=== PATIENT | female | born 1930 | race Caucasian/White ===

== ENCOUNTER → 2016-06-13 | Outpatient (CLI) | payer MEDICARE, OTHER ==
[~2016-06-13] MED LIST: ASPI81TA50 PO; CALC-47 PO; CRESTOR10 MG PO; GABA-585 PO; HYDR-2672 PO; IBUP200C PO; LISI10TA2 PO; MULT-208 PO; OMEG1CAP16 PO; OMEP20TA PO; TRAM50TA PO
[2016-06-13 14:01] LABS: BILIRUBIN,URINE NEGATIVE (NEG); GLUCOSE,URINE NEGATIVE (NEG); NITRITE,URINE NEGATIVE (NEG); PH,URINE 5.5; PROTEIN,URINE NEGATIVE (NEG-TRACE); UROBILINOGEN,URINE 0.2 mg/dL (0.2 mg/dL)
[2016-06-13 14:11] LABS: BACTERIA,URINE 0 /HPF (0-FEW); RBC,URINE 0 /HPF (0-2); SQUAMOUS EPITHELIAL CELL,UR OCC /LPF
[2016-06-13 14:24] LABS: BASO % 0 % (0-3); EOS % 1 % (0-3); HEMATOCRIT 44.1 % (36.0-47.0); HEMOGLOBIN 14.4 g/dL (12.0-15.5); LYMPH # 1.4 x10^3/uL (1.0-4.8); LYMPH % 22 % (24-48); MEAN CORPUSCULAR HEMOGLOBIN 30 pg (25-35); MEAN CORPUSCULAR HGB CONC 33 g/dL (31-37); MEAN CORPUSCULAR VOLUME 93 fL (79-100); MONO % 7 % (0-9); NEUT % 70 % (31-73); PLATELET COUNT 228 x10^3/uL (140-400); RED BLOOD COUNT 4.75 x10^6/uL (3.50-5.40); RED CELL DISTRIBUTION WIDTH 14.6 % (11.5-14.5); WHITE BLOOD COUNT 6.2 x10^3/uL (4.0-11.0)
[2016-06-13 14:34] LABS: PROTHROMBIN TIME PATIENT 12.9 SEC (11.7-14.0)
--- NOTE | 2016-06-13 14:39 | EKG ---
[facility] [address] [place] [address] Test Date: 2016-06-13 Test Time: 14:45:34 Pat Name: DAVID MCKOY Department: Room: Gender: F Certified Surgical Technician: : [id number] Requested By: MARCELINO JAMA Order Number: [id number] Reading MD: Yadira Etienne Measurements Intervals [place] Rate: 70 P: 90 IA: 178 QRS: -18 QRSD: 84 T: 14 QT: 388 QTc: 422 Interpretive Statements SINUS RHYTHM ATRIAL PREMATURE COMPLEX(ES) LEFTWARD AXIS NO SPECIFIC ECG ABNORMALITIES RI6.01 No previous ECG available for comparison Electronically Signed On 06-16-2016 21:31:58 DESK PEN SET ASSEMBLER by Yadira Etienne
[2016-06-13 15:05] LABS: ALBUMIN 3.8 g/dL (3.4-5.0); CALCIUM 9.7 mg/dL (8.5-10.1); CREATININE 0.8 mg/dL (0.6-1.0); GFR 68.2; POTASSIUM 4.4 mmol/L (3.5-5.1); TOTAL BILIRUBIN 0.5 mg/dL (0.2-1.0); TOTAL PROTEIN 7.7 g/dL (6.4-8.2)
== END | disposition home or self-care (01) ==
LOC: SURGPAT 13:10
PROVIDERS: ATTEND Neurological Surgery
DX: Z01.812 Encounter for preprocedural laboratory examination (principal)
CPT/HCPCS: 36415; 80053; 81001; 85027; 85610; 85730; 87086; 87641; 93005

== ENCOUNTER 2016-06-20 07:58 | Inpatient (IN) | payer MEDICARE ==
--- NOTE | 2016-06-17 16:13 | HP ---
ADMIT DATE: 06/20/2016 DATE OF SURGERY: 06/20/2016 HISTORY OF PRESENT ILLNESS: The patient is a pleasant 86-year-old who is having difficulty with incontinence. She is also having increasing unsteadiness of the lower extremities with walking and notices numbness in her right leg. In 04/2011, she underwent a laminectomy for stenosis and did well from that surgery. She says her pain in her right leg can be rated at about a 4-5/10. PAST MEDICAL HISTORY: Arthritis, right hip artificial joint, hypertension, and kidney stones. PAST SURGICAL HISTORY: Left knee replacement in 1999, cholecystectomy in 2000, right knee surgery in 2009, back surgery in 2011, and right hip surgery in 2013. FAMILY HISTORY: Cancer. SOCIAL HISTORY: Retired. . Does not exercise. Denies substance abuse. Former smoker, quit greater than 10 years ago. Drinks alcohol one to two times per year. Drinks coffee, tea and soda. ALLERGIES: No known drug allergies. CURRENT MEDICATIONS: Lisinopril, rosuvastatin, calcium, tramadol, omeprazole, gabapentin, Oscal 500/200, D3, fish oil, multivitamin, and aspirin. REVIEW OF SYSTEMS: A 12-point review of systems was obtained and is noncontributory except for that mentioned above. NEUROSURGERY EXAMINATION: GENERAL APPEARANCE: Alert, pleasant, in no acute distress. HEENT: Normocephalic and atraumatic. SKIN: Warm and dry. MUSCULOSKELETAL: Lumbar paraspinal muscle bulk is normal, restricted range of motion of the lumbar spine, [id number] tenderness of lower lumbar spine with palpation, normal range of motion of the lower extremities bilaterally. EXTREMITIES: No clubbing, cyanosis, or edema. NEUROLOGIC: Alert and oriented x 3, normal recent and remote memory, strength 5/5 in bilateral lower extremities, there is increased tone in both of her lower extremities, sensory was intact to light touch in bilateral lower extremities except for decrease in light touch involving her right lower extremity compared to her left, reflexes were trace and symmetric in the lower extremities bilaterally, and abnormal gait favoring her right leg. IMAGING: I reviewed a thoracic MRI scan. On that study, there is an enhancing mass, which appears intradural and extramedullary T8-T9. This occupies the right side of the canal and markedly compressed the cord to the left. ASSESSMENT/ PLAN: She has enhancing mass, which is now suggestive of meningioma at T8-T9. My recommendation is she undergo surgery to remove the mass. I explained to her that it would be possible she could become paralyzed from this removal and carefully outlined the risks of the surgery. She and her daughters understand very well. She understands the expected postoperative course. She would like to proceed. We will make the arrangements. MARCELINO JAMA MD DR: JIMENEZ/ganga JOB#: [id number] / [id number] DEANNA
[~2016-06-20] VITALS: Ht 157.5 cm; Wt 74.4 kg
[~2016-06-20 07:58] MED LIST changes: +BUPIVAC MPF-EPI 0.5%-1:200000 30 ML VIAL. ONE; +CEFAZOLIN 2GM PREMIX 50 ML IV PRN; +FENTANYL PF 100 MCG/2 ML VIAL. IV PRN; +GELATIN SPONGE SIZE 100. ONE; +IV RINGERS,LACTATED 1000ML 1,000 ML IV SCH; +KETOROLAC 60 MG/2 ML SYRINGE FOR OR. ONE; +LIDOCAINE 1% 1 ML SYRINGE. ID PRN; +MORPHINE SULFATE 2 MG/ML DISP.SYRIN. IV PRN; +ONDANSETRON PF 4 MG/2 ML VIAL. IV PRN; +PROCHLORPERAZINE 10 MG/2 ML VIAL. IV PRN; +THROMBIN 20,000 UNIT SPRAY.SYRN KIT TP ONE
[2016-06-20] MEDS ORDERED: BACITRACIN 50,000 UNIT in IV NORMAL SALINE 1000ML BAG 1,000 ML IRR ONE (08:00)
[2016-06-20] MEDS ORDERED: PROPOFOL 20 ML IV ONE (09:28)
[2016-06-20] MEDS ORDERED: LIDOCAINE 2% 100 MG/5 ML DISP.SYRIN. ONE (09:28)
[2016-06-20] MEDS ORDERED: 0.9 % SODIUM CHLORIDE 50 ML VIAL. IJ ONE (09:28)
[2016-06-20] MEDS ORDERED: ROCURONIUM 50 MG/5 ML VIAL. ONE (09:28)
[2016-06-20] MEDS ORDERED: PROPOFOL 50 ML IV ONE ×2 (09:28→15:21)
[2016-06-20] MEDS ORDERED: DEXAMETHASONE SOD PHOS 20 MG/5 ML VIAL. ONE (09:28)
[2016-06-20] MEDS ORDERED: REMIFENTANIL 2 MG VIAL. IV ONE (09:28)
[2016-06-20] MEDS ORDERED: ONDANSETRON PF 4 MG/2 ML VIAL. ONE (09:28)
--- NOTE | 2016-06-20 10:13 | RAD ---
CT of the thoracic spine without contrast, 06/20/2016: History: Intradural spinal mass, brain lab study Noncontrast scans were obtained with multiplanar reconstructions produced. The data was transferred to the operating room to aid in the patient's stereotactically guided surgery. The following findings are delineated: 1. The patient's known oval-shaped calcified intradural mass is again identified centered at the T8-9 level just to the right of midline. It measures approximately 2.2 cm in craniocaudad extent. 2. There are moderate marginal spurs throughout the thoracic spine. There are moderate degenerative changes involving scattered facet joints bilaterally. No fracture or destructive bony lesion is seen. No spinal stenosis related to the degenerative change is evident. 3. Incidental note is made of a moderate-sized cyst arising from the lateral aspect of the right kidney. There is also a 9 mm slightly dense nodule arising from the upper pole of the right kidney, suggest a complicated cyst versus a solid mass. PQRS Compliance Statement: One or more of the following individualized dose reduction techniques were utilized for this examination: 1. Automated exposure control 2. Adjustment of the mA and/or kV according to patient size 3. Use of iterative reconstruction technique
[2016-06-20] MEDS ORDERED: EPHEDRINE PF IN SALINE 50 MG/5 ML DISP.SYRIN. IV ONE ×2 (13:25→15:42)
[2016-06-20] MEDS ORDERED: PHENYLEPHRINE in 0.9% NACL PF 1 MG/10 ML DISP.SYRIN. IV ONE ×2 (13:56→16:13)
[2016-06-20] MEDS ORDERED: GLYCOPYRROLATE 1 MG/5 ML VIAL. ONE (14:06)
[2016-06-20] MEDS: FENTANYL PF 100 MCG/2 ML VIAL. IV PRN ×2 (18:03→18:14)
[2016-06-20] MEDS: HYDROMORPHONE 2 MG/ML VIAL. IV PRN ×3 (18:24→18:53)
[2016-06-20 19:15] VITALS: BP 152/99
[2016-06-20 20:00] VITALS: BP 118/81
[2016-06-20] MEDS ORDERED: MAG HYDROX/ALUMINUM HYD/SIMETH 30 ML ORAL.SUSP PO PRN (20:30)
[2016-06-20] MEDS ORDERED: ONDANSETRON PF 4 MG/2 ML VIAL. IV PRN (20:30)
[2016-06-20] MEDS ORDERED: DIPHENHYDRAMINE HCL 25 MG CAPSULE PO PRN (20:30)
[2016-06-20] MEDS ORDERED: MAGNESIUM HYDROXIDE 2,400 MG/30 ML ORAL.SUSP. PO PRN (20:30)
[2016-06-20] MEDS ORDERED: 0.9 % SODIUM CHLORIDE 10 ML DISP.SYRIN. IV PRN (20:30)
[2016-06-20] MEDS ORDERED: DIPHENHYDRAMINE 50 MG/ML VIAL IV PRN (20:30)
[2016-06-20] MEDS ORDERED: CALCIUM CARBONATE 500 MG TAB.CHEW PO PRN (20:30)
[2016-06-20] MEDS: POTASSIUM CL 20MEQ D5-0.45NACL 1,000 ML IV SCH (21:00)
[2016-06-20] MEDS: ATORVASTATIN CALCIUM 20 MG TABLET PO SCH (21:21)
[2016-06-20] MEDS: DOCUSATE SODIUM 100 MG CAPSULE PO SCH (21:21)
[2016-06-20] MEDS: GABAPENTIN 400 MG CAPSULE. PO SCH (21:21)
--- NOTE | 2016-06-20 22:42 | OP ---
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 OPERATION PERFORMED: T8-T9 laminectomy with intradural excision of intradural extramedullary mass and decompression of the spinal cord. The operation was done with EMG monitoring, fluoroscopy, BrainLAB guidance, SSEP monitoring, motor evoked potentials. WOOD VENEER TAPER: Geoffrey Beckwith MD., assisted with the surgery. He assisted with the exposure, the laminectomy, the intradural microscopic removal of the mass as well as the closure. OPERATIVE INDICATIONS: The patient is a very pleasant 86-year-old woman who developed intractable problems with bowel and bladder function as well as instability with walking. On imaging study, she was found to have a T8-T9 thoracic mass which was predominantly on the right side with severe compression of the spinal cord and severe stenosis associated with this. I recommended thoracic laminectomy and excision of the mass. I discussed with the patient and her daughter the risks, the technique and the expected postoperative course and they wished me to go ahead. DESCRIPTION OF PROCEDURE: Following general endotracheal anesthesia, the patient was positioned prone on the Johnny table with lumbar regions prepped and draped in standard fashion. MICHELLE hose and AV impulse boots were applied for DVT prophylaxis. A microscope was draped. Fluoroscopy was draped and brought into field. Monitoring was established. Using fluoroscopic guidance, the BrainLAB star was attached to the spinous processes of T10. I then initialized the BrainLAB system and then carried the incision superiorly to the superior border of T8, then reflected the paraspinal muscles and placed self-retaining retractors. I brought in the microscope and the remainder of surgery was done with microscope using microscopic technique. I used [place] to remove the spinous processes of T8 and T9 and then a high speed air drill through the microscope was used using microscopic technique to drill the bone and carried this down to the ligamentum flavum. The dura was exposed from the inferior aspect of T8 to the superior aspect of T9 completely on the right side and about 50% on the left side. I laid a small piece of Gelfoam around the gutters and then 1 x 3 cottonoids were used to out of the wound, which was then cordoned off with towels. I then incised and opened the dura with #11 blade and then used an angled dural guide with 11 blade to open the dura superiorly. I could visualize the tumor. I went from inferior to the tumor to superior to the tumor and placed 4-0 Nurolon stitches which were tagged back with Parisi clamps. Through the microscope then I began to use the arachnoid knife and free up small arachnoid bands which were tethering the tumor which was associated with marked compression of the spinal cord. Beginning superiorly, I grasped the superior pole of the tumor after I worked sort of and helped to detach it. I began to gently peel the tumor from superiorly to inferiorly and as I worked, I was able to obtain an excellent removal at this point and then I went inferiorly and began to peel superiorly. Because there was a large amount of bone work, the tumor base was lifted off of the spinal cord and there was no lateral compression as I was able to carry it away. There was a lateral attachment and I coagulated the vessels, which were attaching the dura laterally and cut this. There was a single nerve that went into the tumor, which was a small branch of a thoracic nerve root which I also divided to allow me to remove the tumor, which was then removed in total. 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 I then explored carefully. There was no significant hemorrhage in the spinal cord. I assured myself of perfect hemostasis within the tumor bed and then we filled the subarachnoid space with warm saline and then closed the dura with a running 4-0 Nurolon. I then placed blue glue and a small piece of a Duragen after I did Valsalva and assured myself that the closure was water tight. I then removed the retractor, obtained hemostasis in the muscle and closed the muscle with absorbable sutures. The fascia was closed in a separate layer. Subcutaneous tissue was closed with 2-0 absorbable sutures and skin was closed with skin jassi. The operation went very well and the monitoring started out quite good and did not deteriorated during the operation. Again, I was quite pleased with the surgery. MARCELINO JAMA MD DR: JIMENEZ/ganga JOB#: [id number] / [id number]
[2016-06-20 23:19] VITALS: BP 135/79
[2016-06-20 23:30] VITALS: BP_SYST 148; BP_SYST 152; BP_DIAS 86; BP_DIAS 90
[2016-06-20 23:54] VITALS: BP 148/85
[2016-06-21 03:30] VITALS: BP 114/61
[2016-06-21 07:24] VITALS: BP 140/76
[2016-06-21] MEDS: PANTOPRAZOLE 40 MG TABLET. PO SCH (07:33)
[2016-06-21] MEDS: GABAPENTIN 400 MG CAPSULE. PO SCH ×2 (08:24→21:21)
[2016-06-21] MEDS: DOCUSATE SODIUM 100 MG CAPSULE PO SCH ×2 (08:24→21:22)
[2016-06-21] MEDS: ASPIRIN ENTERIC COATED 81 MG TABLET.DR. PO SCH (08:24)
[2016-06-21] MEDS: LISINOPRIL 10 MG TABLET PO SCH (08:24)
[2016-06-21] MEDS: MULTIVITAMIN with MINERAL TABLET. PO SCH (08:24)
[2016-06-21] MEDS: CALCIUM CARB/VIT D3 500/200 TABLET PO SCH (08:24)
[2016-06-21] MEDS: TRAMADOL 50 MG TABLET. PO PRN ×2 (08:25→16:17)
--- NOTE | 2016-06-21 10:04 | PDOC ---
PROGRESS NOTES Subjective Subjective POD #1 resting in bed has been up to bathroom incision sore with activity, controlled with medication remains unsteady Objective Objective Vital Signs Date Time Temp Pulse Resp B/P Pulse Ox O2 Delivery O2 Flow Rate FiO2 06/21/16 08:25 Room Air 06/21/16 08:24 89 126/71 06/21/16 07:24 97.8 20 96 97.8 06/20/16 18:53 2.0 Intake and Output 06/21/16 07:00 Intake Total 1550 ml Output Total 650 ml Balance 900 ml IV Total 1550 ml Output Urine Total 550 ml Stool Total 0 ml Estimated Blood Loss 100 ml Physical Exam General: Alert, Oriented X3, Cooperative Neuro: Normal speech, Other (STEINER) Skin: Other (dressing C,DI, flat) Assessment Assessment Problems Medical Problems: (1) Spinal cord tumor Status: Acute Plan Plan of Care consult Dr. Schultz. will likely need SNF Comment Review of Relevant I have reviewed the following items ajsmeet (where applicable) has been applied. Medications Current Medications Ondansetron HCl (Zofran) 4 mg PRN Q6HRS PRN IV Nausea; Start 06/20/16 at 07:00 ; Stop 06/21/16 at 06:59; Status DC Fentanyl Citrate (Fentanyl 2ml Vial) 25 mcg PRN Q5MIN PRN IV MILD PAIN; Start 06/20/16 at 07:00; Stop 06/21/16 at 06:59; Status DC Fentanyl Citrate (Fentanyl 2ml Vial) 50 mcg PRN Q5MIN PRN IV MODERATE PAIN Last administered on 06/20/16 18:14; Start 06/20/16 at 07:00; Stop 06/21/16 at 06:59; Status DC Morphine Sulfate 1 mg 1 mg PRN Q10MIN PRN IV SEVERE PAIN; Start 06/20/16 at 07: 00; Stop 06/21/16 at 06:59; Status DC Lactated Ringer's (Iv Lactated Ringers) 1,000 ml @ 30 mls/hr Q24H IV Last administered on 06/20/16 08:55; Start 06/20/16 at 07:00; Stop 06/20/16 at 18:59 ; Status DC Lidocaine HCl 2 ml 1X PRN PRN ID IV START; Start 06/20/16 at 07:00; Stop at 06:59; Status DC Hydromorphone HCl (Dilaudid) 0.5 mg PRN Q10MIN PRN IV SEVERE PAIN, Second choice Last administered on 06/20/16 18:53; Start 06/20/16 at 07:00; Stop 06/21 at 06:59; Status DC Prochlorperazine Edisylate 5 mg 5 mg PACU PRN PRN IV NAUSEA; Start 06/20/16 at 07:00; Stop 06/21/16 at 06:59; Status DC Bacitracin 73336 unit/Sodium Chloride 1,000 ml @ 1,000 mls/hr 1X PERIOP ONCE IRR Last administered on 06/20/16 14:11; Start 06/20/16 at 08:00; Stop at 08:59; Status DC Cefazolin Sodium/ Dextrose (Ancef 2gm Premix) 50 ml @ 100 mls/hr 1X PREOP PRN IV PRIOR TO SURGERY Last administered on 06/20/16 13:23; Start 06/19/16 at 08: 00 Bupivacaine HCl/ Epinephrine Bitart (Sensorcain-Mpf Epi 0.5%-1:[id number]) 30 ml STK -MED ONCE .ROUTE Last administered on 06/20/16 14:11; Start 06/20/16 at 07:51 ; Stop 06/20/16 at 07:52; Status DC Gelatin (Gelfoam Size 100) 1 each STK-MED ONCE .ROUTE Last administered on 14:11; Start 06/20/16 at 07:51; Stop 06/20/16 at 07:52; Status DC Ketorolac Tromethamine (Toradol For Or Only) 60 mg STK-MED ONCE .ROUTE Last administered on 06/20/16 14:11; Start 06/20/16 at 07:51; Stop 06/20/16 at 07:52 ; Status DC Thrombin 20,000 unit STK-MED ONCE TP Last administered on 06/20/16 14:11; Start 06/20/16 at 07:51; Stop 06/20/16 at 07:52; Status DC Dexamethasone Sodium Phosphate (Decadron) 20 mg STK-MED ONCE .ROUTE ; Start at 09:28; Stop 06/20/16 at 09:29; Status DC Ondansetron HCl 4 mg 4 mg STK-MED ONCE .ROUTE ; Start 06/20/16 at 09:28; Stop at 09:29; Status DC Propofol 20 ml @ As Directed STK-MED ONCE IV ; Start 06/20/16 at 09:28; Stop at 09:29; Status DC Propofol (Diprivan) 50 ml @ As Directed STK-MED ONCE IV ; Start 06/20/16 at 09: 28; Stop 06/20/16 at 09:29; Status DC Lidocaine HCl 100 mg STK-MED ONCE .ROUTE ; Start 06/20/16 at 09:28; Stop at 09:29; Status DC Sodium Chloride (Sodium Chloride) 50 ml STK-MED ONCE IJ ; Start 06/20/16 at 09: 28; Stop 06/20/16 at 09:29; Status DC Remifentanil HCl (Ultiva) 2 mg STK-MED ONCE IV ; Start 06/20/16 at 09:28; Stop 06/20/16 at 09:29; Status DC Rocuronium [place] (Zemuron) 50 mg STK-MED ONCE .ROUTE ; Start 06/20/16 at 09:28 ; Stop 06/20/16 at 09:29; Status DC Ephedrine Sulfate 50 mg STK-MED ONCE IV ; Start 06/20/16 at 13:25; Stop at 13:26; Status DC Phenylephrine HCl 1 mg STK-MED ONCE IV ; Start 06/20/16 at 13:56; Stop 06/20/16 at 13:57; Status DC Glycopyrrolate 1 mg 1 mg STK-MED ONCE .ROUTE ; Start 06/20/16 at 14:06; Stop at 14:07; Status DC Propofol (Diprivan) 50 ml @ As Directed STK-MED ONCE IV ; Start 06/20/16 at 15: 21; Stop 06/20/16 at 15:22; Status DC Ephedrine Sulfate 50 mg STK-MED ONCE IV ; Start 06/20/16 at 15:42; Stop at 15:43; Status DC Phenylephrine HCl 1 mg STK-MED ONCE IV ; Start 06/20/16 at 16:13; Stop 06/20/16 at 16:14; Status DC Aspirin (Ecotrin) 81 mg DAILY PO Last administered on 06/21/16 08:24; Start at 09:00 Calcium/Vitamin D (Oscal D 500mg/ 200uts) 1 tab DAILY PO Last administered on 08:24; Start 06/21/16 at 09:00 Gabapentin (Neurontin) 400 mg BID PO Last administered on 06/21/16 08:24; Start 06/20/16 at 21:00 Lisinopril (Prinivil) 10 mg DAILY PO Last administered on 06/21/16 08:24; Start 06/21/16 at 09:00 Tramadol HCl (Ultram) 50 mg PRN Q6HRS PRN PO MILD TO MODERATE PAIN Last administered on 06/21/16 08:25; Start 06/20/16 at 17:15 Multivitamins/ Calcium (Thera M Plus) 1 tab DAILY PO Last administered on 08:24; Start 06/21/16 at 09:00 Pantoprazole Sodium (Protonix) 40 mg DAILYAC PO Last administered on 06/21/16 07:33; Start 06/21/16 at 07:30 Atorvastatin Calcium (Lipitor) 20 mg QHS PO Last administered on 06/20/16 21: 21; Start 06/20/16 at 21:00 Acetaminophen (Tylenol) 650 mg PRN Q6HRS PRN PO MILD PAIN / TEMP; Start at 20:30 Al Hydrox/Mg Hydrox/Simethicone (Mylanta Plus Xs) 30 ml PRN Q3HRS PRN PO HEARTBURN / GAS; Start 06/20/16 at 20:30 Calcium Carbonate/ Glycine (Tums) 500 mg PRN Q3HRS PRN PO INDIGESTION; Start at 20:30 Diphenhydramine HCl (Benadryl) 25 mg PRN Q6HRS PRN PO ITCHING; Start 06/20/16 at 20:30 Diphenhydramine HCl (Benadryl) 25 mg PRN Q6HRS PRN IV ITCHING; Start 06/20/16 at 20:30 Sodium Chloride 3 ml 3 ml QSHIFT PRN IV AFTER MEDS AND BLOOD DRAWS; Start 06/20 at 20:30 Potassium Chloride/Dextrose/ Sod Cl (KCl 20 Meq In D5W-1/2 NS) 1,000 ml @ 75 mls/hr [id number] IV ; Start 06/20/16 at 21:00 Docusate Sodium (Colace) 100 mg BID PO Last administered on 06/21/16t 08:24; Start 06/20/16 at 21:00 Magnesium Hydroxide (Milk Of Magnesia) 2,400 mg PRN Q12HR PRN PO CONSTIPATION; Start 06/20/16 at 20:30 Ondansetron HCl (Zofran) 4 mg PRN Q6HRS PRN IV NAUESA, 1ST CHOICE; Start at 20:30 Active Scripts Active Reported Lisinopril 10 Mg Tablet 1 Tab PO DAILY Multi-Day Vitamins (Multivitamin) 1 Each Tablet 1 Tab PO DAILY Aspir-Low (Aspirin) 81 Mg Tablet.dr 1 Tab PO DAILY Fish Oil 1,000 Mg Softgel ([place]-3 Fatty Acids/Fish Oil) 1 Each Capsule 1 Each PO Calcium 500 + Vit D 200 Tablet (Calcium Carbonate/Vitamin D3) 1 Each Tablet 1 Each PO Omeprazole 20 Mg Tablet.dr 1 Tab PO DAILY Gabapentin 100 Mg Capsule 400 Mg PO BID Crestor (Rosuvastatin Calcium) 10 Mg Tablet 5 Mg PO DAILY Tramadol Hcl 50 Mg Tablet 1 Tab PO PRN Q6HRS Vitals/I & O Vital Sign - Last 24 Hours 06/20/16 06/20/16 06/20/16 06/20/16 17:14 17:14 17:29 17:44 Temp 98.0 98.0 Pulse 87 79 82 Resp 20 20 16 B/P 156/69 152/73 154/68 Pulse Ox 100 90 93 O2 Delivery Mask Simple Mask Room Air Room Air O2 Flow Rate 10 10 06/20/16 06/20/16 06/20/16 06/20/16 17:59 18:03 18:14 18:14 Temp 98.0 98.0 98.0 98.0 Pulse 82 81 Resp 18 18 23 18 B/P 142/55 146/68 Pulse Ox 93 93 92 93 O2 Delivery Room Air Room Air Room Air Room Air 06/20/16 06/20/16 06/20/16 06/20/16 18:24 18:29 18:38 18:44 Temp 98.0 98.0 98.0 98.0 Pulse 83 84 Resp 18 20 B/P 151/64 161/82 Pulse Ox 93 95 95 94 O2 Delivery Room Air Nasal Cannula Nasal Cannula Nasal Cannula O2 Flow Rate 2 2.0 2.0 06/20/16 06/20/16 06/20/16 06/20/16 18:53 19:15 20:00 23:19 Temp 97.9 99.0 97.9 99.0 Pulse 91 92 93 Resp 20 B/P 152/99 118/81 135/79 Pulse Ox 95 97 94 O2 Delivery Nasal Cannula Room Air O2 Flow Rate 2.0 06/20/16 06/20/16 06/20/16 06/21/16 23:30 23:30 23:54 03:30 Temp 97.9 98.5 97.9 98.5 Pulse 85 91 87 86 Resp 16 B/P 148/86 152/90 148/85 114/61 Pulse Ox 94 93 O2 Delivery Room Air Room Air 06/21/16 06/21/16 06/21/16 06/21/16 07:24 08:20 08:24 08:25 Temp 97.8 97.8 Pulse 81 89 Resp 20 B/P 140/76 126/71 Pulse Ox 96 O2 Delivery Room Air Room Air Room Air Intake and Output 06/20/16 06/20/16 06/21/16 15:00 23:00 07:00 Intake Total 50 ml 1500 ml Output Total 500 ml 150 ml Balance 50 ml 1000 ml -150 ml MARCELINO JAMA MD Jun 21, 2016 10:04
[2016-06-21] MEDS: POTASSIUM CL 20MEQ D5-0.45NACL 1,000 ML IV SCH (10:20)
[2016-06-21] MEDS ORDERED: BISACODYL 5 MG TABLET.DR. PO PRN (10:45)
[2016-06-21 11:25] VITALS: BP 114/64
[2016-06-21] MEDS: ACETAMINOPHEN 325 MG TABLET. PO PRN ×2 (11:57→21:22)
[2016-06-21] MEDS: SENNOSIDES/DOCUSATE 8.6/50MG TABLET. PO SCH ×2 (11:57→21:21)
--- NOTE | 2016-06-21 16:33 | CONS ---
DATE OF CONSULTATION: 06/21/2016 I saw her at the request of Dr. Lv Proctor on 06/21/2016. She is in room 448. HISTORY OF PRESENT ILLNESS: This is an 86-year-old female with problems with her bladder control, had evaluation was found with T8 level tumor pressing on the spinal canal. She had thoracic decompression laminectomy done on 06/20/2016. She admits continued back pain mainly with movement. The patient admits some constipation. She denies any trouble with her bladder control at present time. She admits some numbness in her right foot. The patient prior to the present hospitalization has been living alone. She had no steps for her to manage and she had a walker at home. PHYSICAL EXAMINATION: The patient on physical examination today revealed an elderly female, she is alert, oriented to time, place, person and circumstance and follows commands appropriately, moves all 4 extremities voluntarily where she had 4+/5 grade muscle strength and deep tendon reflexes are 1 to 2+ and symmetrical. She had slightly decreased touch and pinprick sensation over right foot. She had dressing to her midthoracic spine area. Minimal tenderness to palpation over the mid thoracic paraspinal muscles. Straight leg raising test is negative bilaterally. She is independent with bed mobility and transfers, once up, she can walk using a roller walker. I did not see any loss of balance. The patient is status post bilateral total knee arthroplasties in the past. ASSESSMENT: The patient is status post decompression laminectomy T8-T9 level for treatment of mass lesion pressing on the spinal canal with neurogenic bladder and mild incoordination using her right lower extremity and mobility and self-care limitations. RECOMMENDATIONS: Agree with the plan for physical therapy. To also ask occupational therapy to see her. To ask for a screen for her transfer to [facility] as she is somewhat hesitant about return to her home. She can go and stay with her daughter, but she has several steps for her to manage and also her daughter who is a nurse works to check post-voiding residual to make sure she is emptying her bladder and also to start her on a bowel training program. Dr. Proctro, I appreciate asking me to participate in care of this interesting patient. I will be glad to follow her with you as needed for her rehabilitation. RICK LOMBARDI MD DR: CATHRYN/ganga JOB#: [id number] / [id number]
[2016-06-21 18:03] VITALS: BP 148/87
[2016-06-21] MEDS: ATORVASTATIN CALCIUM 20 MG TABLET PO SCH (21:22)
[2016-06-21 22:30] VITALS: BP 151/85
[2016-06-22 04:05] VITALS: BP 143/87
[2016-06-22 06:25] VITALS: BP 152/87
[2016-06-22] MEDS: PANTOPRAZOLE 40 MG TABLET. PO SCH (06:27)
[2016-06-22] MEDS ORDERED: ONDANSETRON ODT 4 MG TAB.RAPDIS PO PRN (08:00)
[2016-06-22] MEDS: TRAMADOL 50 MG TABLET. PO PRN ×2 (08:47→17:21)
[2016-06-22] MEDS: ASPIRIN ENTERIC COATED 81 MG TABLET.DR. PO SCH (09:00)
[2016-06-22] MEDS: SENNOSIDES/DOCUSATE 8.6/50MG TABLET. PO SCH ×2 (09:00→20:47)
[2016-06-22] MEDS: MULTIVITAMIN with MINERAL TABLET. PO SCH (09:00)
[2016-06-22] MEDS: GABAPENTIN 400 MG CAPSULE. PO SCH ×2 (09:00→20:47)
[2016-06-22] MEDS: DOCUSATE SODIUM 100 MG CAPSULE PO SCH ×2 (09:00→20:47)
[2016-06-22] MEDS: CALCIUM CARB/VIT D3 500/200 TABLET PO SCH (09:00)
[2016-06-22] MEDS: LISINOPRIL 10 MG TABLET PO SCH (09:17)
[2016-06-22] MEDS ORDERED: HYDROCODONE/APAP 7.5/325MG TABLET. PO PRN ×2 (09:30)
--- NOTE | 2016-06-22 09:40 | PDOC ---
PROGRESS NOTES Subjective Subjective resting in bed nauseated, vomited overnight incisional pain and leg pain when up daughter at bedside Objective Objective Vital Signs Date Time Temp Pulse Resp B/P Pulse Ox O2 Delivery O2 Flow Rate FiO2 06/22/16 09:17 83 152/87 06/22/16 08:47 16 Room Air 06/22/16 06:25 99.3 95 99.3 06/20/16 18:53 2.0 Intake and Output 06/22/16 07:00 Intake Total 1000 ml Balance 1000 ml Intake Oral 1000 ml # Voids 10 Physical Exam General: Alert, Oriented X3, Cooperative Neuro: Normal speech, Other (strength 5/5 in BLE) Psych/Mental Status: Mental status NL Skin: Other (Dressing C,D,I, flat) Assessment Assessment Problems Medical Problems: (1) Spinal cord tumor Status: Acute Plan Plan of Care restart IVF Zofran prn encouraged in creased activity as tolerated encouraged to avoid straining Comment Review of Relevant I have reviewed the following items jasmeet (where applicable) has been applied. Medications Current Medications Ondansetron HCl (Zofran) 4 mg PRN Q6HRS PRN IV Nausea; Start 06/20/16 at 07:00 ; Stop 06/21/16 at 06:59; Status DC Fentanyl Citrate (Fentanyl 2ml Vial) 25 mcg PRN Q5MIN PRN IV MILD PAIN; Start 06/20/16 at 07:00; Stop 06/21/16 at 06:59; Status DC Fentanyl Citrate (Fentanyl 2ml Vial) 50 mcg PRN Q5MIN PRN IV MODERATE PAIN Last administered on 06/20/16 18:14; Start 06/20/16 at 07:00; Stop 06/21/16 at 06:59; Status DC Morphine Sulfate 1 mg 1 mg PRN Q10MIN PRN IV SEVERE PAIN; Start 06/20/16 at 07: 00; Stop 06/21/16 at 06:59; Status DC Lactated Ringer's (Iv Lactated Ringers) 1,000 ml @ 30 mls/hr Q24H IV Last administered on 06/20/16 08:55; Start 06/20/16 at 07:00; Stop 06/20/16 at 18:59 ; Status DC Lidocaine HCl 2 ml 1X PRN PRN ID IV START; Start 06/20/16 at 07:00; Stop at 06:59; Status DC Hydromorphone HCl (Dilaudid) 0.5 mg PRN Q10MIN PRN IV SEVERE PAIN, Second choice Last administered on 06/20/16 18:53; Start 06/20/16 at 07:00; Stop 06/21 at 06:59; Status DC Prochlorperazine Edisylate 5 mg 5 mg PACU PRN PRN IV NAUSEA; Start 06/20/16 at 07:00; Stop 06/21/16 at 06:59; Status DC Bacitracin 45027 unit/Sodium Chloride 1,000 ml @ 1,000 mls/hr 1X PERIOP ONCE IRR Last administered on 06/20/16 14:11; Start 06/20/16 at 08:00; Stop at 08:59; Status DC Cefazolin Sodium/ Dextrose (Ancef 2gm Premix) 50 ml @ 100 mls/hr 1X PREOP PRN IV PRIOR TO SURGERY Last administered on 06/20/16 13:23; Start 06/19/16 at 08: 00 Bupivacaine HCl/ Epinephrine Bitart (Sensorcain-Mpf Epi 0.5%-1:061787) 30 ml STK -MED ONCE .ROUTE Last administered on 06/20/16 14:11; Start 06/20/16 at 07:51 ; Stop 06/20/16 at 07:52; Status DC Gelatin (Gelfoam Size 100) 1 each STK-MED ONCE .ROUTE Last administered on 14:11; Start 06/20/16 at 07:51; Stop 06/20/16 at 07:52; Status DC Ketorolac Tromethamine (Toradol For Or Only) 60 mg STK-MED ONCE .ROUTE Last administered on 06/20/16 14:11; Start 06/20/16 at 07:51; Stop 06/20/16 at 07:52 ; Status DC Thrombin 20,000 unit STK-MED ONCE TP Last administered on 06/20/16 14:11; Start 06/20/16 at 07:51; Stop 06/20/16 at 07:52; Status DC Dexamethasone Sodium Phosphate (Decadron) 20 mg STK-MED ONCE .ROUTE ; Start at 09:28; Stop 06/20/16 at 09:29; Status DC Ondansetron HCl 4 mg 4 mg STK-MED ONCE .ROUTE ; Start 06/20/16 at 09:28; Stop at 09:29; Status DC Propofol 20 ml @ As Directed STK-MED ONCE IV ; Start 06/20/16 at 09:28; Stop at 09:29; Status DC Propofol (Diprivan) 50 ml @ As Directed STK-MED ONCE IV ; Start 06/20/16 at 09: 28; Stop 06/20/16 at 09:29; Status DC Lidocaine HCl 100 mg STK-MED ONCE .ROUTE ; Start 06/20/16 at 09:28; Stop at 09:29; Status DC Sodium Chloride (Sodium Chloride) 50 ml STK-MED ONCE IJ ; Start 06/20/16 at 09: 28; Stop 06/20/16 at 09:29; Status DC Remifentanil HCl (Ultiva) 2 mg STK-MED ONCE IV ; Start 06/20/16 at 09:28; Stop 06/20/16 at 09:29; Status DC Rocuronium [place] (Zemuron) 50 mg STK-MED ONCE .ROUTE ; Start 06/20/16 at 09:28 ; Stop 06/20/16 at 09:29; Status DC Ephedrine Sulfate 50 mg STK-MED ONCE IV ; Start 06/20/16 at 13:25; Stop at 13:26; Status DC Phenylephrine HCl 1 mg STK-MED ONCE IV ; Start 06/20/16 at 13:56; Stop 06/20/16 at 13:57; Status DC Glycopyrrolate 1 mg 1 mg STK-MED ONCE .ROUTE ; Start 06/20/16 at 14:06; Stop at 14:07; Status DC Propofol (Diprivan) 50 ml @ As Directed STK-MED ONCE IV ; Start 06/20/16 at 15: 21; Stop 06/20/16 at 15:22; Status DC Ephedrine Sulfate 50 mg STK-MED ONCE IV ; Start 06/20/16 at 15:42; Stop at 15:43; Status DC Phenylephrine HCl 1 mg STK-MED ONCE IV ; Start 06/20/16 at 16:13; Stop 06/20/16 at 16:14; Status DC Aspirin (Ecotrin) 81 mg DAILY PO Last administered on 06/21/16 08:24; Start at 09:00 Calcium/Vitamin D (Oscal D 500mg/ 200uts) 1 tab DAILY PO Last administered on 08:24; Start 06/21/16 at 09:00 Gabapentin (Neurontin) 400 mg BID PO Last administered on 06/21/16 21:21; Start 06/20/16 at 21:00 Lisinopril (Prinivil) 10 mg DAILY PO Last administered on 06/22/16 09:17; Start 06/21/16 at 09:00 Tramadol HCl (Ultram) 50 mg PRN Q6HRS PRN PO MILD TO MODERATE PAIN Last administered on 06/22/16 08:47; Start 06/20/16 at 17:15 Multivitamins/ Calcium (Thera M Plus) 1 tab DAILY PO Last administered on 08:24; Start 06/21/16 at 09:00 Pantoprazole Sodium (Protonix) 40 mg DAILYAC PO Last administered on 06/22/16 06:27; Start 06/21/16 at 07:30 Atorvastatin Calcium (Lipitor) 20 mg QHS PO Last administered on 06/21/16 21: 22; Start 06/20/16 at 21:00 Acetaminophen (Tylenol) 650 mg PRN Q6HRS PRN PO MILD PAIN / TEMP Last administered on 06/21/16 21:22; Start 06/20/16 at 20:30 Al Hydrox/Mg Hydrox/Simethicone (Mylanta Plus Xs) 30 ml PRN Q3HRS PRN PO HEARTBURN / GAS; Start 06/20/16 at 20:30 Calcium Carbonate/ Glycine (Tums) 500 mg PRN Q3HRS PRN PO INDIGESTION; Start at 20:30 Diphenhydramine HCl (Benadryl) 25 mg PRN Q6HRS PRN PO ITCHING; Start 06/20/16 at 20:30 Diphenhydramine HCl (Benadryl) 25 mg PRN Q6HRS PRN IV ITCHING; Start 06/20/16 at 20:30 Sodium Chloride 3 ml 3 ml QSHIFT PRN IV AFTER MEDS AND BLOOD DRAWS; Start 06/20 at 20:30 Potassium Chloride/Dextrose/ Sod Cl (KCl 20 Meq In D5W-1/2 NS) 1,000 ml @ 75 mls/hr [id number] IV ; Start 06/20/16 at 21:00; Stop 06/21/16 at 19:12; Status DC Docusate Sodium (Colace) 100 mg BID PO Last administered on 06/21/16 21:22; Start 06/20/16 at 21:00 Magnesium Hydroxide (Milk Of Magnesia) 2,400 mg PRN Q12HR PRN PO CONSTIPATION; Start 06/20/16 at 20:30 Ondansetron HCl (Zofran) 4 mg PRN Q6HRS PRN IV NAUESA, 1ST CHOICE; Start at 20:30 Senna/Docusate Sodium (Senna Plus) 1 tab BID PO Last administered on 06/21/16 21:21; Start 06/21/16 at 11:00 Bisacodyl (Dulcolax Tab) 10 mg PRN DAILY PRN PO CONSTIPATION; Start 06/21/16 at 10:45 Ondansetron HCl (Zofran Odt) 4 mg PRN Q8HRS PRN PO NAUSEA/VOMITING Last administered on 06/22/16 08:46; Start 06/22/16 at 08:00 Acetaminophen/ Hydrocodone Bitart (Lortab 7.5/325) 1 tab PRN Q6HRS PRN PO PAIN ; Start 06/22/16 at 09:30 Acetaminophen/ Hydrocodone Bitart (Lortab 7.5/325) 2 tab PRN Q6HRS PRN PO PAIN ; Start 06/22/16 at 09:30 Active Scripts Active Reported Lisinopril 10 Mg Tablet 1 Tab PO DAILY Multi-Day Vitamins (Multivitamin) 1 Each Tablet 1 Tab PO DAILY Aspir-Low (Aspirin) 81 Mg Tablet. 1 Tab PO DAILY Fish Oil 1,000 Mg Softgel ([place]-3 Fatty Acids/Fish Oil) 1 Each Capsule 1 Each PO Calcium 500 + Vit D 200 Tablet (Calcium Carbonate/Vitamin D3) 1 Each Tablet 1 Each PO Omeprazole 20 Mg Tablet.dr 1 Tab PO DAILY Gabapentin 100 Mg Capsule 400 Mg PO BID Crestor (Rosuvastatin Calcium) 10 Mg Tablet 5 Mg PO DAILY Tramadol Hcl 50 Mg Tablet 1 Tab PO PRN Q6HRS Vitals/I & O Vital Sign - Last 24 Hours 06/21/16 06/21/16 06/21/16 06/21/16 11:25 16:17 17:20 18:03 Temp 98.6 98.5 98.6 98.5 Pulse 76 77 Resp 16 16 B/P 114/64 148/87 Pulse Ox 93 95 O2 Delivery Room Air Room Air Room Air Room Air 06/21/16 06/21/16 06/22/16 06/22/16 19:55 22:30 04:05 06:25 Temp 98.1 98.4 99.3 98.1 98.4 99.3 Pulse 84 77 83 Resp 20 18 18 B/P 151/85 143/87 152/87 Pulse Ox 95 96 95 O2 Delivery Room Air Room Air Room Air Room Air 06/22/16 06/22/16 06/22/16 07:56 08:47 09:17 Pulse 83 Resp 16 B/P 152/87 O2 Delivery Room Air Room Air Intake and Output 06/21/16 06/21/16 06/22/16 15:00 23:00 07:00 Intake Total 540 ml 360 ml 100 ml Balance 540 ml 360 ml 100 ml CORIN KELLER APRN Jun 22, 2016 09:40
[2016-06-22] MEDS ORDERED: ONDANSETRON PF 4 MG/2 ML VIAL. IV PRN (09:45)
--- NOTE | 2016-06-22 09:58 | PDOC ---
PROGRESS NOTES Subjective Subjective She c/o continued back pain and she vomited last night and not passing gases. Objective Objective Vital Signs Date Time Temp Pulse Resp B/P Pulse Ox O2 Delivery O2 Flow Rate FiO2 06/22/16 09:17 83 152/87 06/22/16 08:47 16 Room Air 06/22/16 06:25 99.3 95 99.3 06/20/16 18:53 2.0 Intake and Output 06/22/16 07:00 Intake Total 1000 ml Balance 1000 ml Intake Oral 1000 ml # Voids 10 Physical Exam Physical Exam She is supine in bed and not moving as good as yesterday. Assessment Assessment Problems Medical Problems: (1) Spinal cord tumor Status: Acute Plan Plan of Care To obtain KUB and get lab and encourage her to take hydrocodone for better pain control. Comment Review of Relevant I have reviewed the following items jasmeet (where applicable) has been applied. Medications Current Medications Ondansetron HCl (Zofran) 4 mg PRN Q6HRS PRN IV Nausea; Start 06/20/16 at 07:00 ; Stop 06/21/16 at 06:59; Status DC Fentanyl Citrate (Fentanyl 2ml Vial) 25 mcg PRN Q5MIN PRN IV MILD PAIN; Start 06/20/16 at 07:00; Stop 06/21/16 at 06:59; Status DC Fentanyl Citrate (Fentanyl 2ml Vial) 50 mcg PRN Q5MIN PRN IV MODERATE PAIN Last administered on 06/20/16 18:14; Start 06/20/16 at 07:00; Stop 06/21/16 at 06:59; Status DC Morphine Sulfate 1 mg 1 mg PRN Q10MIN PRN IV SEVERE PAIN; Start 06/20/16 at 07: 00; Stop 06/21/16 at 06:59; Status DC Lactated Ringer's (Iv Lactated Ringers) 1,000 ml @ 30 mls/hr Q24H IV Last administered on 06/20/16 08:55; Start 06/20/16 at 07:00; Stop 06/20/16 at 18:59 ; Status DC Lidocaine HCl 2 ml 1X PRN PRN ID IV START; Start 06/20/16 at 07:00; Stop at 06:59; Status DC Hydromorphone HCl (Dilaudid) 0.5 mg PRN Q10MIN PRN IV SEVERE PAIN, Second choice Last administered on 06/20/16 18:53; Start 06/20/16 at 07:00; Stop 06/21 at 06:59; Status DC Prochlorperazine Edisylate 5 mg 5 mg PACU PRN PRN IV NAUSEA; Start 06/20/16 at 07:00; Stop 06/21/16 at 06:59; Status DC Bacitracin 56016 unit/Sodium Chloride 1,000 ml @ 1,000 mls/hr 1X PERIOP ONCE IRR Last administered on 06/20/16 14:11; Start 06/20/16 at 08:00; Stop at 08:59; Status DC Cefazolin Sodium/ Dextrose (Ancef 2gm Premix) 50 ml @ 100 mls/hr 1X PREOP PRN IV PRIOR TO SURGERY Last administered on 06/20/16 13:23; Start 06/19/16 at 08: 00 Bupivacaine HCl/ Epinephrine Bitart (Sensorcain-Mpf Epi 0.5%-1:[id number]) 30 ml STK -MED ONCE .ROUTE Last administered on 06/20/16 14:11; Start 06/20/16 at 07:51 ; Stop 06/20/16 at 07:52; Status DC Gelatin (Gelfoam Size 100) 1 each STK-MED ONCE .ROUTE Last administered on 14:11; Start 06/20/16 at 07:51; Stop 06/20/16 at 07:52; Status DC Ketorolac Tromethamine (Toradol For Or Only) 60 mg STK-MED ONCE .ROUTE Last administered on 06/20/16 14:11; Start 06/20/16 at 07:51; Stop 06/20/16 at 07:52 ; Status DC Thrombin 20,000 unit STK-MED ONCE TP Last administered on 06/20/16 14:11; Start 06/20/16 at 07:51; Stop 06/20/16 at 07:52; Status DC Dexamethasone Sodium Phosphate (Decadron) 20 mg STK-MED ONCE .ROUTE ; Start at 09:28; Stop 06/20/16 at 09:29; Status DC Ondansetron HCl 4 mg 4 mg STK-MED ONCE .ROUTE ; Start 06/20/16 at 09:28; Stop at 09:29; Status DC Propofol 20 ml @ As Directed STK-MED ONCE IV ; Start 06/20/16 at 09:28; Stop at 09:29; Status DC Propofol (Diprivan) 50 ml @ As Directed STK-MED ONCE IV ; Start 06/20/16 at 09: 28; Stop 06/20/16 at 09:29; Status DC Lidocaine HCl 100 mg STK-MED ONCE .ROUTE ; Start 06/20/16 at 09:28; Stop at 09:29; Status DC Sodium Chloride (Sodium Chloride) 50 ml STK-MED ONCE IJ ; Start 06/20/16 at 09: 28; Stop 06/20/16 at 09:29; Status DC Remifentanil HCl (Ultiva) 2 mg STK-MED ONCE IV ; Start 06/20/16 at 09:28; Stop 06/20/16 at 09:29; Status DC Rocuronium [place] (Zemuron) 50 mg STK-MED ONCE .ROUTE ; Start 06/20/16 at 09:28 ; Stop 06/20/16 at 09:29; Status DC Ephedrine Sulfate 50 mg STK-MED ONCE IV ; Start 06/20/16 at 13:25; Stop at 13:26; Status DC Phenylephrine HCl 1 mg STK-MED ONCE IV ; Start 06/20/16 at 13:56; Stop 06/20/16 at 13:57; Status DC Glycopyrrolate 1 mg 1 mg STK-MED ONCE .ROUTE ; Start 06/20/16 at 14:06; Stop at 14:07; Status DC Propofol (Diprivan) 50 ml @ As Directed STK-MED ONCE IV ; Start 06/20/16 at 15: 21; Stop 06/20/16 at 15:22; Status DC Ephedrine Sulfate 50 mg STK-MED ONCE IV ; Start 06/20/16 at 15:42; Stop at 15:43; Status DC Phenylephrine HCl 1 mg STK-MED ONCE IV ; Start 06/20/16 at 16:13; Stop 06/20/16 at 16:14; Status DC Aspirin (Ecotrin) 81 mg DAILY PO Last administered on 06/21/16 08:24; Start at 09:00 Calcium/Vitamin D (Oscal D 500mg/ 200uts) 1 tab DAILY PO Last administered on 08:24; Start 06/21/16 at 09:00 Gabapentin (Neurontin) 400 mg BID PO Last administered on 06/21/16 21:21; Start 06/20/16 at 21:00 Lisinopril (Prinivil) 10 mg DAILY PO Last administered on 06/22/16 09:17; Start 06/21/16 at 09:00 Tramadol HCl (Ultram) 50 mg PRN Q6HRS PRN PO MILD TO MODERATE PAIN Last administered on 06/22/16 08:47; Start 06/20/16 at 17:15 Multivitamins/ Calcium (Thera M Plus) 1 tab DAILY PO Last administered on 08:24; Start 06/21/16 at 09:00 Pantoprazole Sodium (Protonix) 40 mg DAILYAC PO Last administered on 06/22/16 06:27; Start 06/21/16 at 07:30 Atorvastatin Calcium (Lipitor) 20 mg QHS PO Last administered on 06/21/16 21: 22; Start 06/20/16 at 21:00 Acetaminophen (Tylenol) 650 mg PRN Q6HRS PRN PO MILD PAIN / TEMP Last administered on 06/21/16 21:22; Start 06/20/16 at 20:30 Al Hydrox/Mg Hydrox/Simethicone (Mylanta Plus Xs) 30 ml PRN Q3HRS PRN PO HEARTBURN / GAS; Start 06/20/16 at 20:30 Calcium Carbonate/ Glycine (Tums) 500 mg PRN Q3HRS PRN PO INDIGESTION; Start at 20:30 Diphenhydramine HCl (Benadryl) 25 mg PRN Q6HRS PRN PO ITCHING; Start 06/20/16 at 20:30 Diphenhydramine HCl (Benadryl) 25 mg PRN Q6HRS PRN IV ITCHING; Start 06/20/16 at 20:30 Sodium Chloride 3 ml 3 ml QSHIFT PRN IV AFTER MEDS AND BLOOD DRAWS; Start 06/20 at 20:30 Potassium Chloride/Dextrose/ Sod Cl (KCl 20 Meq In D5W-1/2 NS) 1,000 ml @ 75 mls/hr [id number] IV ; Start 06/20/16 at 21:00; Stop 06/21/16 at 19:12; Status DC Docusate Sodium (Colace) 100 mg BID PO Last administered on 06/21/16 21:22; Start 06/20/16 at 21:00 Magnesium Hydroxide (Milk Of Magnesia) 2,400 mg PRN Q12HR PRN PO CONSTIPATION; Start 06/20/16 at 20:30 Ondansetron HCl (Zofran) 4 mg PRN Q6HRS PRN IV NAUESA, 1ST CHOICE; Start at 20:30 Senna/Docusate Sodium (Senna Plus) 1 tab BID PO Last administered on 06/21/16 21:21; Start 06/21/16 at 11:00 Bisacodyl (Dulcolax Tab) 10 mg PRN DAILY PRN PO CONSTIPATION; Start 06/21/16 at 10:45 Ondansetron HCl (Zofran Odt) 4 mg PRN Q8HRS PRN PO NAUSEA/VOMITING Last administered on 06/22/16 08:46; Start 06/22/16 at 08:00 Acetaminophen/ Hydrocodone Bitart (Lortab 7.5/325) 1 tab PRN Q6HRS PRN PO PAIN ; Start 06/22/16 at 09:30 Acetaminophen/ Hydrocodone Bitart 2 tab 2 tab PRN Q6HRS PRN PO PAIN; Start 06/22 at 09:30 Potassium Chloride/Dextrose/ Sod Cl (KCl 20 Meq In D5W-1/2 NS) 1,000 ml @ 75 mls/hr [id number] IV ; Start 06/22/16 at 10:30 Ondansetron HCl (Zofran) 4 mg PRN Q6HRS PRN IV NAUSEA/VOMITING; Start 06/22/16 at 09:45 Polyethylene Glycol (miraLAX PACKET) 17 gm PRN DAILY PRN PO CONSTIPATION; Start 06/22/16 at 09:45 Active Scripts Active Reported Lisinopril 10 Mg Tablet 1 Tab PO DAILY Multi-Day Vitamins (Multivitamin) 1 Each Tablet 1 Tab PO DAILY Aspir-Low (Aspirin) 81 Mg Tablet.dr 1 Tab PO DAILY Fish Oil 1,000 Mg Softgel ([place]-3 Fatty Acids/Fish Oil) 1 Each Capsule 1 Each PO Calcium 500 + Vit D 200 Tablet (Calcium Carbonate/Vitamin D3) 1 Each Tablet 1 Each PO Omeprazole 20 Mg Tablet.dr 1 Tab PO DAILY Gabapentin 100 Mg Capsule 400 Mg PO BID Crestor (Rosuvastatin Calcium) 10 Mg Tablet 5 Mg PO DAILY Tramadol Hcl 50 Mg Tablet 1 Tab PO PRN Q6HRS Vitals/I & O Vital Sign - Last 24 Hours 06/21/16 06/21/16 06/21/16 06/21/16 11:25 16:17 17:20 18:03 Temp 98.6 98.5 98.6 98.5 Pulse 76 77 Resp 16 16 B/P 114/64 148/87 Pulse Ox 93 95 O2 Delivery Room Air Room Air Room Air Room Air 06/21/16 06/21/16 06/22/16 06/22/16 19:55 22:30 04:05 06:25 Temp 98.1 98.4 99.3 98.1 98.4 99.3 Pulse 84 77 83 Resp 20 18 18 B/P 151/85 143/87 152/87 Pulse Ox 95 96 95 O2 Delivery Room Air Room Air Room Air Room Air 06/22/16 06/22/16 06/22/16 07:56 08:47 09:17 Pulse 83 Resp 16 B/P 152/87 O2 Delivery Room Air Room Air Intake and Output 06/21/16 06/21/16 06/22/16 15:00 23:00 07:00 Intake Total 540 ml 360 ml 100 ml Balance 540 ml 360 ml 100 ml RICK LOMBARDI MD Jun 22, 2016 09:58
[2016-06-22 10:52] LABS: BASO % 0 % (0-3); EOS % 0 % (0-3); HEMATOCRIT 39.1 % (36.0-47.0); HEMOGLOBIN 12.7 g/dL (12.0-15.5); LYMPH # 0.9 x10^3/uL (1.0-4.8); LYMPH % 6 % (24-48); MEAN CORPUSCULAR HEMOGLOBIN 30 pg (25-35); MEAN CORPUSCULAR HGB CONC 32 g/dL (31-37); MEAN CORPUSCULAR VOLUME 92 fL (79-100); MONO % 10 % (0-9); NEUT % 84 % (31-73); PLATELET COUNT 203 x10^3/uL (140-400); RED BLOOD COUNT 4.25 x10^6/uL (3.50-5.40); WHITE BLOOD COUNT 14.6 x10^3/uL (4.0-11.0)
[2016-06-22 11:03] LABS: CALCIUM 8.6 mg/dL (8.5-10.1); CREATININE 0.8 mg/dL (0.6-1.0); GFR 68.2
[2016-06-22] MEDS: POTASSIUM CL 20MEQ D5-0.45NACL 1,000 ML IV SCH ×2 (11:06→23:27)
[2016-06-22] MEDS ORDERED: FENTANYL PF 100 MCG/2 ML VIAL. IV PRN ×2 (11:45)
[2016-06-22] MEDS: POLYETHYLENE GLYCOL 3350 17 GM PACKET. PO PRN (11:56)
[2016-06-22] MEDS: ACETAMINOPHEN 325 MG TABLET. PO PRN ×2 (13:52→21:53)
--- NOTE | 2016-06-22 16:38 | RAD ---
KUB, 06/22/2016: History: Postop nausea and vomiting There is gas and stool scattered throughout the colon in a nonspecific pattern. There is no evidence of organomegaly. Surgical skin clips overlie the upper abdomen near the midline. Scattered vascular calcifications are present. There are degenerative and postsurgical changes in the lumbar spine. 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 The acetabular cup demonstrates a somewhat vertical orientation. IMPRESSION: No acute abdominal abnormality is detected.
[2016-06-22] MEDS: BISACODYL 10 MG SUPP.RECT PR PRN (17:21)
[2016-06-22 19:15] VITALS: BP 144/84
[2016-06-22] MEDS: ATORVASTATIN CALCIUM 20 MG TABLET PO SCH (20:47)
[2016-06-22 23:30] VITALS: BP 140/90
[2016-06-23 03:41] VITALS: BP 140/88
[2016-06-23] MEDS: BISACODYL 10 MG SUPP.RECT PR PRN (05:35)
[2016-06-23 06:03] VITALS: BP 144/96
[2016-06-23] MEDS: PANTOPRAZOLE 40 MG TABLET. PO SCH (07:03)
[2016-06-23] MEDS: POLYETHYLENE GLYCOL 3350 17 GM PACKET. PO PRN (08:22)
[2016-06-23] MEDS: MULTIVITAMIN with MINERAL TABLET. PO SCH (08:24)
[2016-06-23] MEDS: GABAPENTIN 400 MG CAPSULE. PO SCH (08:24)
[2016-06-23] MEDS: SENNOSIDES/DOCUSATE 8.6/50MG TABLET. PO SCH (08:25)
[2016-06-23] MEDS: DOCUSATE SODIUM 100 MG CAPSULE PO SCH (08:25)
[2016-06-23] MEDS: ASPIRIN ENTERIC COATED 81 MG TABLET.DR. PO SCH (08:25)
[2016-06-23] MEDS: CALCIUM CARB/VIT D3 500/200 TABLET PO SCH (08:25)
[2016-06-23] MEDS: LISINOPRIL 10 MG TABLET PO SCH (08:27)
--- NOTE | 2016-06-23 10:11 | PDOC ---
PROGRESS NOTES Subjective Subjective She feels much better and passing gases but no BM yet. Objective Objective Vital Signs Date Time Temp Pulse Resp B/P Pulse Ox O2 Delivery O2 Flow Rate FiO2 06/23/16 08:27 93 155/91 06/23/16 07:50 Room Air 06/23/16 06:03 98.3 20 94 98.3 06/20/16 18:53 2.0 Intake and Output 06/23/16 07:00 Intake Total 1220 ml Balance 1220 ml Intake Oral 1220 ml # Voids 2 Physical Exam Physical Exam She is sitting in bedside chair and is comfortable.KUB failed to reveal and intestinal obstruction.Lab revealed elevated WBC and blood sugar. Assessment Assessment Problems Medical Problems: (1) Spinal cord tumor Status: Acute Plan Plan of Care To [facility] when medically ready. Comment Review of Relevant I have reviewed the following items jasmeet (where applicable) has been applied. Labs Laboratory Tests Test 06/22/16 10:45 White Blood Count 14.6x10^3/uL (4.0-11.0) Red Blood Count 4.25x10^6/uL (3.50-5.40) Hemoglobin 12.7g/dL (12.0-15.5) Hematocrit 39.1% (36.0-47.0) Mean Corpuscular Volume 92fL (79-100) Mean Corpuscular Hemoglobin 30pg (25-35) Mean Corpuscular Hemoglobin Concent 32g/dL (31-37) Red Cell Distribution Width 15.0% (11.5-14.5) Platelet Count 203x10^3/uL (140-400) Neutrophils (%) (Auto) 84% (31-73) Lymphocytes (%) (Auto) 6% (24-48) Monocytes (%) (Auto) 10% (0-9) Eosinophils (%) (Auto) 0% (0-3) Basophils (%) (Auto) 0% (0-3) Neutrophils # (Auto) 12.2x10^3uL (1.8-7.7) Lymphocytes # (Auto) 0.9x10^3/uL (1.0-4.8) Monocytes # (Auto) 1.4x10^3/uL (0.0-1.1) Eosinophils # (Auto) 0.0x10^3/uL (0.0-0.7) Basophils # (Auto) 0.0x10^3/uL (0.0-0.2) Sodium Level 139mmol/L (136-145) Potassium Level 4.0mmol/L (3.5-5.1) Chloride Level 101mmol/L (98-107) Carbon Dioxide Level 29mmol/L (21-32) Anion Gap 9 (6-14) Blood Urea Nitrogen 19mg/dL (7-20) Creatinine 0.8mg/dL (0.6-1.0) Estimated GFR (Cockcroft-Gault) 68.2 Glucose Level 135mg/dL (70-99) Calcium Level 8.6mg/dL (8.5-10.1) Laboratory Tests Test 06/22/16 10:45 White Blood Count 14.6x10^3/uL (4.0-11.0) Red Blood Count 4.25x10^6/uL (3.50-5.40) Hemoglobin 12.7g/dL (12.0-15.5) Hematocrit 39.1% (36.0-47.0) Mean Corpuscular Volume 92fL (79-100) Mean Corpuscular Hemoglobin 30pg (25-35) Mean Corpuscular Hemoglobin Concent 32g/dL (31-37) Red Cell Distribution Width 15.0% (11.5-14.5) Platelet Count 203x10^3/uL (140-400) Neutrophils (%) (Auto) 84% (31-73) Lymphocytes (%) (Auto) 6% (24-48) Monocytes (%) (Auto) 10% (0-9) Eosinophils (%) (Auto) 0% (0-3) Basophils (%) (Auto) 0% (0-3) Neutrophils # (Auto) 12.2x10^3uL (1.8-7.7) Lymphocytes # (Auto) 0.9x10^3/uL (1.0-4.8) Monocytes # (Auto) 1.4x10^3/uL (0.0-1.1) Eosinophils # (Auto) 0.0x10^3/uL (0.0-0.7) Basophils # (Auto) 0.0x10^3/uL (0.0-0.2) Sodium Level 139mmol/L (136-145) Potassium Level 4.0mmol/L (3.5-5.1) Chloride Level 101mmol/L (98-107) Carbon Dioxide Level 29mmol/L (21-32) Anion Gap 9 (6-14) Blood Urea Nitrogen 19mg/dL (7-20) Creatinine 0.8mg/dL (0.6-1.0) Estimated GFR (Cockcroft-Gault) 68.2 Glucose Level 135mg/dL (70-99) Calcium Level 8.6mg/dL (8.5-10.1) Medications Current Medications Ondansetron HCl (Zofran) 4 mg PRN Q6HRS PRN IV Nausea; Start 06/20/16 at 07:00 ; Stop 06/21/16 at 06:59; Status DC Fentanyl Citrate (Fentanyl 2ml Vial) 25 mcg PRN Q5MIN PRN IV MILD PAIN; Start 06/20/16 at 07:00; Stop 06/21/16 at 06:59; Status DC Fentanyl Citrate (Fentanyl 2ml Vial) 50 mcg PRN Q5MIN PRN IV MODERATE PAIN Last administered on 06/20/16 18:14; Start 06/20/16 at 07:00; Stop 06/21/16 at 06:59; Status DC Morphine Sulfate 1 mg 1 mg PRN Q10MIN PRN IV SEVERE PAIN; Start 06/20/16 at 07: 00; Stop 06/21/16 at 06:59; Status DC Lactated Ringer's (Iv Lactated Ringers) 1,000 ml @ 30 mls/hr Q24H IV Last administered on 06/20/16 08:55; Start 06/20/16 at 07:00; Stop 06/20/16 at 18:59 ; Status DC Lidocaine HCl 2 ml 1X PRN PRN ID IV START; Start 06/20/16 at 07:00; Stop at 06:59; Status DC Hydromorphone HCl (Dilaudid) 0.5 mg PRN Q10MIN PRN IV SEVERE PAIN, Second choice Last administered on 06/20/16 18:53; Start 06/20/16 at 07:00; Stop 06/21 at 06:59; Status DC Prochlorperazine Edisylate 5 mg 5 mg PACU PRN PRN IV NAUSEA; Start 06/20/16 at 07:00; Stop 06/21/16 at 06:59; Status DC Bacitracin 33920 unit/Sodium Chloride 1,000 ml @ 1,000 mls/hr 1X PERIOP ONCE IRR Last administered on 06/20/16 14:11; Start 06/20/16 at 08:00; Stop at 08:59; Status DC Cefazolin Sodium/ Dextrose (Ancef 2gm Premix) 50 ml @ 100 mls/hr 1X PREOP PRN IV PRIOR TO SURGERY Last administered on 06/20/16 13:23; Start 06/19/16 at 08: 00 Bupivacaine HCl/ Epinephrine Bitart (Sensorcain-Mpf Epi 0.5%-1:[id number]) 30 ml STK -MED ONCE .ROUTE Last administered on 06/20/16 14:11; Start 06/20/16 at 07:51 ; Stop 06/20/16 at 07:52; Status DC Gelatin (Gelfoam Size 100) 1 each STK-MED ONCE .ROUTE Last administered on 14:11; Start 06/20/16 at 07:51; Stop 06/20/16 at 07:52; Status DC Ketorolac Tromethamine (Toradol For Or Only) 60 mg STK-MED ONCE .ROUTE Last administered on 06/20/16 14:11; Start 06/20/16 at 07:51; Stop 06/20/16 at 07:52 ; Status DC Thrombin 20,000 unit STK-MED ONCE TP Last administered on 06/20/16 14:11; Start 06/20/16 at 07:51; Stop 06/20/16 at 07:52; Status DC Dexamethasone Sodium Phosphate (Decadron) 20 mg STK-MED ONCE .ROUTE ; Start at 09:28; Stop 06/20/16 at 09:29; Status DC Ondansetron HCl 4 mg 4 mg STK-MED ONCE .ROUTE ; Start 06/20/16 at 09:28; Stop at 09:29; Status DC Propofol 20 ml @ As Directed STK-MED ONCE IV ; Start 06/20/16 at 09:28; Stop at 09:29; Status DC Propofol (Diprivan) 50 ml @ As Directed STK-MED ONCE IV ; Start 06/20/16 at 09: 28; Stop 06/20/16 at 09:29; Status DC Lidocaine HCl 100 mg STK-MED ONCE .ROUTE ; Start 06/20/16 at 09:28; Stop at 09:29; Status DC Sodium Chloride (Sodium Chloride) 50 ml STK-MED ONCE IJ ; Start 06/20/16 at 09: 28; Stop 06/20/16 at 09:29; Status DC Remifentanil HCl (Ultiva) 2 mg STK-MED ONCE IV ; Start 06/20/16 at 09:28; Stop 06/20/16 at 09:29; Status DC Rocuronium [place] (Zemuron) 50 mg STK-MED ONCE .ROUTE ; Start 06/20/16 at 09:28 ; Stop 06/20/16 at 09:29; Status DC Ephedrine Sulfate 50 mg STK-MED ONCE IV ; Start 06/20/16 at 13:25; Stop at 13:26; Status DC Phenylephrine HCl 1 mg STK-MED ONCE IV ; Start 06/20/16 at 13:56; Stop 06/20/16 at 13:57; Status DC Glycopyrrolate 1 mg 1 mg STK-MED ONCE .ROUTE ; Start 06/20/16 at 14:06; Stop at 14:07; Status DC Propofol (Diprivan) 50 ml @ As Directed STK-MED ONCE IV ; Start 06/20/16 at 15: 21; Stop 06/20/16 at 15:22; Status DC Ephedrine Sulfate 50 mg STK-MED ONCE IV ; Start 06/20/16 at 15:42; Stop at 15:43; Status DC Phenylephrine HCl 1 mg STK-MED ONCE IV ; Start 06/20/16 at 16:13; Stop 06/20/16 at 16:14; Status DC Aspirin (Ecotrin) 81 mg DAILY PO Last administered on 06/23/16 08:25; Start at 09:00 Calcium/Vitamin D (Oscal D 500mg/ 200uts) 1 tab DAILY PO Last administered on 08:25; Start 06/21/16 at 09:00 Gabapentin (Neurontin) 400 mg BID PO Last administered on 06/23/16 08:24; Start 06/20/16 at 21:00 Lisinopril (Prinivil) 10 mg DAILY PO Last administered on 06/23/16 08:27; Start 06/21/16 at 09:00 Tramadol HCl (Ultram) 50 mg PRN Q6HRS PRN PO MILD TO MODERATE PAIN Last administered on 06/22/16 17:21; Start 06/20/16 at 17:15 Multivitamins/ Calcium (Thera M Plus) 1 tab DAILY PO Last administered on 08:24; Start 06/21/16 at 09:00 Pantoprazole Sodium (Protonix) 40 mg DAILYAC PO Last administered on 06/23/16 07:03; Start 06/21/16 at 07:30 Atorvastatin Calcium (Lipitor) 20 mg QHS PO Last administered on 06/22/16 20:47 ; Start 06/20/16 at 21:00 Acetaminophen (Tylenol) 650 mg PRN Q6HRS PRN PO MILD PAIN / TEMP Last administered on 06/22/16 21:53; Start 06/20/16 at 20:30 Al Hydrox/Mg Hydrox/Simethicone (Mylanta Plus Xs) 30 ml PRN Q3HRS PRN PO HEARTBURN / GAS; Start 06/20/16 at 20:30 Calcium Carbonate/ Glycine (Tums) 500 mg PRN Q3HRS PRN PO INDIGESTION; Start at 20:30 Diphenhydramine HCl (Benadryl) 25 mg PRN Q6HRS PRN PO ITCHING; Start 06/20/16 at 20:30 Diphenhydramine HCl (Benadryl) 25 mg PRN Q6HRS PRN IV ITCHING; Start 06/20/16 at 20:30 Sodium Chloride 3 ml 3 ml QSHIFT PRN IV AFTER MEDS AND BLOOD DRAWS; Start 06/20 at 20:30 Potassium Chloride/Dextrose/ Sod Cl (KCl 20 Meq In D5W-1/2 NS) 1,000 ml @ 75 mls/hr [id number] IV ; Start 06/20/16 at 21:00; Stop 06/21/16 at 19:12; Status DC Docusate Sodium (Colace) 100 mg BID PO Last administered on 06/23/16 08:25; Start 06/20/16 at 21:00 Magnesium Hydroxide (Milk Of Magnesia) 2,400 mg PRN Q12HR PRN PO CONSTIPATION; Start 06/20/16 at 20:30 Ondansetron HCl (Zofran) 4 mg PRN Q6HRS PRN IV NAUESA, 1ST CHOICE; Start at 20:30 Senna/Docusate Sodium (Senna Plus) 1 tab BID PO Last administered on 06/23/16 08:25; Start 06/21/16 at 11:00 Bisacodyl (Dulcolax Tab) 10 mg PRN DAILY PRN PO CONSTIPATION; Start 06/21/16 at 10:45 Ondansetron HCl (Zofran Odt) 4 mg PRN Q8HRS PRN PO NAUSEA/VOMITING Last administered on 06/22/16 08:46; Start 06/22/16 at 08:00 Acetaminophen/ Hydrocodone Bitart (Lortab 7.5/325) 1 tab PRN Q6HRS PRN PO PAIN ; Start 06/22/16 at 09:30 Acetaminophen/ Hydrocodone Bitart 2 tab 2 tab PRN Q6HRS PRN PO PAIN; Start 06/22 at 09:30 Potassium Chloride/Dextrose/ Sod Cl (KCl 20 Meq In D5W-1/2 NS) 1,000 ml @ 75 mls/hr [id number] IV Last administered on 06/22/16 23:27; Start 06/22/16 at 10:30 Ondansetron HCl (Zofran) 4 mg PRN Q6HRS PRN IV NAUSEA/VOMITING; Start 06/22/16 at 09:45 Polyethylene Glycol (miraLAX PACKET) 17 gm PRN DAILY PRN PO CONSTIPATION Last administered on 06/23/16 08:22; Start 06/22/16 at 09:45 Fentanyl Citrate (Fentanyl 2ml Vial) 25 mcg PRN Q1HR PRN IV PAIN Last administered on 06/22/16 11:56; Start 06/22/16 at 11:45 Fentanyl Citrate (Fentanyl 2ml Vial) 50 mcg PRN Q1HR PRN IV PAIN; Start at 11:45 Bisacodyl (Dulcolax Supp) [address] CONSTIPATION Last administered on 06/23/16t 05:35; Start 06/22/16 at 14:30 Active Scripts Active Reported Lisinopril 10 Mg Tablet 1 Tab PO DAILY Multi-Day Vitamins (Multivitamin) 1 Each Tablet 1 Tab PO DAILY Aspir-Low (Aspirin) 81 Mg Tablet.dr 1 Tab PO DAILY Fish Oil 1,000 Mg Softgel ([place]-3 Fatty Acids/Fish Oil) 1 Each Capsule 1 Each PO Calcium 500 + Vit D 200 Tablet (Calcium Carbonate/Vitamin D3) 1 Each Tablet 1 Each PO Omeprazole 20 Mg Tablet.dr 1 Tab PO DAILY Gabapentin 100 Mg Capsule 400 Mg PO BID Crestor (Rosuvastatin Calcium) 10 Mg Tablet 5 Mg PO DAILY Tramadol Hcl 50 Mg Tablet 1 Tab PO PRN Q6HRS Vitals/I & O Vital Sign - Last 24 Hours 06/22/16 06/22/16 06/22/16 06/22/16 11:56 12:30 17:21 18:26 Resp 16 16 16 16 O2 Delivery Room Air Room Air Room Air Room Air 06/22/16 06/22/16 06/22/16 06/23/16 19:15 20:00 23:30 03:41 Temp 98.8 98.9 98.8 98.8 98.9 98.8 Pulse 77 74 79 Resp 20 20 20 B/P 144/84 140/90 140/88 Pulse Ox 96 96 94 O2 Delivery Room Air Room Air Room Air Room Air 06/23/16 06/23/16 06/23/16 06:03 07:50 08:27 Temp 98.3 98.3 Pulse 85 93 Resp 20 B/P 144/96 155/91 Pulse Ox 94 O2 Delivery Room Air Room Air Intake and Output 06/22/16 06/22/16 06/23/16 15:00 23:00 07:00 Intake Total 280 ml 740 ml 200 ml Balance 280 ml 740 ml 200 ml RICK LOMBARDI MD Jun 23, 2016 10:10
[2016-06-23] MEDS ORDERED: DOCUSATE SODIUM 283 MG/5 ML ENEMA. PR PRN (10:15)
[2016-06-23] MEDS ORDERED: MAGNESIUM CITRATE 296 ML SOLUTION. PO PRN (10:45)
[2016-06-23] MEDS: TRAMADOL 50 MG TABLET. PO PRN (11:56)
--- NOTE | 2016-06-23 12:55 | DISCH ---
DISCHARGE INSTRUCTIONS Activity After Discharge Activity Instructions for Disc: Activity as tolerated, Avoid exertion Bathing Instructions: Shower-keep dressing dry Lifting Instructions after Dis: No heavy lifting, No pulling or pushing, Do not lift >10 pounds Driving Instructions after Dis: Do not drive Diet after Discharge Additional Diet Restrictions: resume home diet Wound Incision Care Wound/Incision Care: Ice to area for comfort Other wound/incision instructi: daily dressing change Contacting the [facility] after DC Call your doctor for: Concerns you may have Follow-Up Follow up with: Dr. Proctor in 2 weeks [phone] Treatment/Equipment after DC Adaptive Equipment Issued: CORIN Jennings APRN Jun 23, 2016 12:55
[2016-06-23] MEDS ORDERED: POLY17PO5 PO (12:58)
[2016-06-23] MEDS ORDERED: BISA5TAB4 PO (12:58)
[2016-06-23] MEDS ORDERED: MAGN296S4 PO (12:58)
[2016-06-23] MEDS ORDERED: DOCU283E PR (12:58)
[2016-06-23 13:00] VITALS: BP 149/97
--- NOTE | 2016-06-23 14:08 | PATHOLOGY ---
PATHOLOGY REPORT * * * * * * * * FINAL DIAGNOSIS: A. Thoracic mass excision: - PSAMMOMATOUS MENINGIOMA, WHO GRADE I. B. Segments of fibrocartilaginous and fibroadipose tissue and bone, thoracic decompression: - Degenerative changes of fibrocartilaginous tissue. COMMENT: Sections of the extramedullary, intradural thoracic mass reveal a meningothelial meningioma which maintains a lobular architecture and contains numerous psammoma bodies. There are scattered foci of small cell change. However, there is no significant mitotic activity, no loss of lobular architecture, no cytologic atypia with macronucleoli, and no evidence of spontaneous necrosis. The morphologic findings are supportive of the diagnosis of psammomatous meningioma, WHO grade I. The case is also examined by Dr. Frey, who concurs with the diagnosis. (JPM:rigoberto; d/t: 06/22/2016) REPORT ELECTRONICALLY SIGNED BY: Jorge Luis No M.D. DATE/TIME: 06/23/2016 14:07 * * * * * * * * GROSS PATHOLOGY: A. The specimen is received fresh for intraoperative consultation and is designated "thoracic mass." This consists of an ovoid-shaped segment of pink-leonard rubbery tissue, measuring up to 1.9 x 1.5 x 0.7 cm. The margin is inked. The specimen is serially sectioned parallel to the long axis. Sectioning reveals a pink-leonard rubbery cut surface. A title insurance sales representative portion is submitted for frozen section as FSA1. The tissue remaining from frozen section is submitted for permanent sections as A1. (JPM:mgr; d/t: 06/20/16) B. Received in formalin labeled "Edler, Yanet and thoracic decompression," are multiple segments of leonard white to leonard brown, rubbery and gritty tissue admixed with bone, measuring 7.3 x 4.3 x 0.5 cm in aggregate dimensions. The tissue is submitted representatively in cassette B1. (TTL:rigoberto; 06/21/2016) FROZEN SECTION DIAGNOSIS: (Vida No M.D.) Thoracic mass: - Meningioma. The results are reported to Dr. Proctor in the operating room. The remaining tissue is submitted for microscopy as A2. (JPM:mgr; d/t: 06/20/16) Testing performed by [facility] [place] [address] INITIAL CPT CODE(S): A; 13959 B; 17703, 56287, 66070 Professional services performed by [facility] [place] [address] Technical services performed by [facility] at [address] [place] [address], [facility] [address] [address]. SPECIMEN(S) RECEIVED: A.Thoracic mass B.Thoracic decompression CLINICAL HISTORY: Thoracic mass PATIENT: YANET MCKOY /AGE: 10 1930 (Age: 86) PATIENT #: [id number] ALT CASE #: SPECIMEN COLLECTION DATE: 06/20/2016 SPECIMEN RECEIVED DATE: 06/20/2016 [facility] - [address] [place] [address] - PHONE: [phone] * * * END OF REPORT * * *
== END 2016-06-23 14:05 | DRG 29 ==
LOC: SURHIP 07:58 → 4 SOUTHEST 19:00
PROVIDERS: ADMIT Neurological Surgery; ATTEND Neurological Surgery
PROC: 00BX0ZZ Excision of Thoracic Spinal Cord, Open Approach (ICD-10-PCS; 2016-06-20)
PROC: BR171ZZ Fluoroscopy of Thoracic Spine using Low Osmolar Contrast (ICD-10-PCS; 2016-06-20)
PROC: 00NX0ZZ Release Thoracic Spinal Cord, Open Approach (ICD-10-PCS; principal; 2016-06-20 11:00)
DX: D33.4 Benign neoplasm of spinal cord (principal); G95.20 Unspecified cord compression; R32 Unspecified urinary incontinence; I10 Essential (primary) hypertension; K59.00 Constipation, unspecified; Z96.652 Presence of left artificial knee joint; M48.04 Spinal stenosis, thoracic region; N31.9 Neuromuscular dysfunction of bladder, unspecified; Z87.442 Personal history of urinary calculi; Z87.891 Personal history of nicotine dependence; Z90.49 Acquired absence of other specified parts of digestive tract
CPT/HCPCS: 36415; 72128; 74000; 76000; 80048; 85027; 86850; 86900; 86901; 88304; 88307; 88331; J0690; J1100; J1170; J1885; J2370; J2405; J2704; J3010; J3490; J7030; J7120; Q0162; 97110; 97116; 97535

== ENCOUNTER → 2016-07-06 | Outpatient (CLI) | payer MEDICARE ==
[2016-06-23 13:00] VITALS: BP 149/97
[~2016-07-06] MED LIST changes: +ACET325T9 PO; +BISA-42 PO; +BISA5TAB4 PO; -BUPIVAC MPF-EPI 0.5%-1:200000 30 ML VIAL. ONE; -CEFAZOLIN 2GM PREMIX 50 ML IV PRN; +DIPH25CA58 PO; +DOCU-27 PO; +DOCU283E PR; -FENTANYL PF 100 MCG/2 ML VIAL. IV PRN; -GELATIN SPONGE SIZE 100. ONE; -IV RINGERS,LACTATED 1000ML 1,000 ML IV SCH; -KETOROLAC 60 MG/2 ML SYRINGE FOR OR. ONE; -LIDOCAINE 1% 1 ML SYRINGE. ID PRN; +MAG-27 PO; +MAGN296S PO; +MAGN296S4 PO; -MORPHINE SULFATE 2 MG/ML DISP.SYRIN. IV PRN; +ONDA4TAB10 SL; -ONDANSETRON PF 4 MG/2 ML VIAL. IV PRN; +PANT40TA5 PO; +POLY119P4 PO; +POLY17PO5 PO; -PROCHLORPERAZINE 10 MG/2 ML VIAL. IV PRN; +SENN1TAB21 PO; -THROMBIN 20,000 UNIT SPRAY.SYRN KIT TP ONE
--- NOTE | 2016-07-06 11:47 | RAD ---
MR THORACIC SPINE HISTORY: BACK PAIN, RECENT TUMOR EXCISION, NO CONTRAST PER ORDER Reason: MRSPTWO/ THORACIC STENOSIS / Spl. Instructions: / History: Technique: Sagittal T2, sagittal STIR, sagittal T1, and axial gradient echo imaging was obtained of the thoracic spine. FINDINGS: Alignment and curvature are within normal limits. No compression deformity or fracture. There has been a wide laminectomy at the levels of T8 and T9. There is a retrocecal fluid collection measuring 3.5 centimeters craniocaudal by 1.6 centimeters AP by 2.1 centimeters transverse. This causes severe mass effect upon the cord. There is a small amount of T2 signal within the central portion of the cord just below this level. Intrathoracic contents are within normal limits. Limited upper abdominal images demonstrate incompletely evaluated probable renal cysts. Impression: There is severe mass effect upon the cord at the level of T8-T9 secondary to presence of a retrocecal fluid collection at the laminectomy site. There is a small amount of cord signal abnormality just inferior to the area of mass effect could represent chronic myelomalacia or acute cord edema. Electronically signed by: Slick [place] (Jul 06, 2016 11:46:04)
== END | disposition home or self-care (01) ==
LOC: MRI 12:30
PROVIDERS: ATTEND Neurological Surgery
DX: M48.04 Spinal stenosis, thoracic region (principal)
CPT/HCPCS: 72146

== ENCOUNTER 2016-07-08 07:30 | Inpatient (IN) | payer MEDICARE ==
[~2016-07-08] VITALS: Ht 157.5 cm; Wt 71.7 kg
[2016-07-08] VITALS (11 sets, daily range): BP systolic 117–148; BP diastolic 53–97
[~2016-07-08 07:30] MED LIST changes: -ACET325T9 PO; +BACITRACIN 50,000 UNIT in IV NORMAL SALINE 1000ML BAG 1,000 ML IRR ONE; -BISA-42 PO; -DIPH25CA58 PO; -DOCU-27 PO; -MAG-27 PO; -MAGN296S PO; -ONDA4TAB10 SL; -PANT40TA5 PO; -POLY119P4 PO; -SENN1TAB21 PO
[2016-07-08] MEDS ORDERED: THROMBIN 20,000 UNIT SPRAY.SYRN KIT TP ONE (07:40)
[2016-07-08] MEDS ORDERED: BUPIVACAINE MPF 0.25% 30 ML VIAL. ONE (07:40)
[2016-07-08] MEDS ORDERED: GELATIN SPONGE SIZE 100. ONE (07:40)
[2016-07-08] MEDS ORDERED: BUPIVACAINE MPF 0.5% 30 ML VIAL. ONE (07:41)
[2016-07-08] MEDS ORDERED: LIDOCAINE 1% PF 30 ML VIAL. ONE (07:42)
[2016-07-08] MEDS ORDERED: LIDOCAINE 1%/EPI 1:100,000 20 ML VIAL. ONE (07:43)
[2016-07-08] MEDS ORDERED: IV RINGERS,LACTATED 1000ML 1,000 ML IV SCH (07:44)
[2016-07-08] MEDS ORDERED: ONDANSETRON PF 4 MG/2 ML VIAL. IV PRN ×2 (07:45→11:15)
[2016-07-08] MEDS ORDERED: FENTANYL PF 100 MCG/2 ML VIAL. IV PRN ×4 (07:45→11:30)
[2016-07-08] MEDS ORDERED: MORPHINE SULFATE 2 MG/ML DISP.SYRIN. IV PRN (07:45)
[2016-07-08] MEDS ORDERED: PROCHLORPERAZINE 10 MG/2 ML VIAL. IV PRN (07:45)
[2016-07-08] MEDS ORDERED: LIDOCAINE 1% 1 ML SYRINGE. ID PRN (07:45)
[2016-07-08] MEDS ORDERED: HYDROMORPHONE 2 MG/ML VIAL. IV PRN (07:45)
[2016-07-08] MEDS ORDERED: BISA-42 PO (07:53)
[2016-07-08] MEDS ORDERED: POLY119P4 PO (07:53)
[2016-07-08] MEDS ORDERED: ONDA4TAB10 SL (07:53)
[2016-07-08] MEDS ORDERED: MAG-27 PO (07:53)
[2016-07-08] MEDS ORDERED: MAGN296S PO (07:53)
[2016-07-08] MEDS ORDERED: ACET325T9 PO (07:53)
[2016-07-08] MEDS ORDERED: PANT40TA5 PO (07:53)
[2016-07-08] MEDS ORDERED: SENN1TAB21 PO (07:53)
[2016-07-08] MEDS ORDERED: DOCU-27 PO (07:53)
[2016-07-08] MEDS ORDERED: DIPH25CA58 PO (07:53)
[2016-07-08] MEDS ORDERED: CEFAZOLIN 2GM PREMIX 50 ML IV ONE ×2 (08:26→12:15)
[2016-07-08 08:31] LABS: BASO # 0.1 x10^3/uL (0.0-0.2); BASO % 1 % (0-3); EOS % 1 % (0-3); HEMATOCRIT 41.8 % (36.0-47.0); HEMOGLOBIN 13.5 g/dL (12.0-15.5); LYMPH # 1.1 x10^3/uL (1.0-4.8); LYMPH % 11 % (24-48); MEAN CORPUSCULAR HEMOGLOBIN 30 pg (25-35); MEAN CORPUSCULAR HGB CONC 32 g/dL (31-37); MEAN CORPUSCULAR VOLUME 93 fL (79-100); MONO % 5 % (0-9); NEUT % 82 % (31-73); PLATELET COUNT 375 x10^3/uL (140-400); RED BLOOD COUNT 4.48 x10^6/uL (3.50-5.40); RED CELL DISTRIBUTION WIDTH 14.5 % (11.5-14.5); WHITE BLOOD COUNT 9.7 x10^3/uL (4.0-11.0)
[2016-07-08] MEDS ORDERED: PROPOFOL 50 ML IV ONE (08:47)
[2016-07-08] MEDS ORDERED: LIDOCAINE 2% 100 MG/5 ML DISP.SYRIN. ONE (08:47)
[2016-07-08] MEDS ORDERED: ONDANSETRON PF 4 MG/2 ML VIAL. ONE (08:47)
[2016-07-08] MEDS ORDERED: PHENYLEPHRINE 10 MG/ML VIAL. ONE (08:47)
[2016-07-08] MEDS ORDERED: PROPOFOL 20 ML IV ONE (08:47)
[2016-07-08] MEDS ORDERED: DEXAMETHASONE SOD PHOS 20 MG/5 ML VIAL. ONE (08:47)
[2016-07-08] MEDS ORDERED: REMIFENTANIL 2 MG VIAL. IV ONE (08:48)
[2016-07-08] MEDS ORDERED: ROCURONIUM 50 MG/5 ML VIAL. ONE (08:48)
--- NOTE | 2016-07-08 09:14 | PDOC1 ---
History and Physical Date of Admission Date of Admission DATE: 07/08/16 TIME: 09:01 Identification/Chief Complaint Chief Complaint lower extremity weakness History of Present Illness History of Present Illness 86F s/p surgical resection of thoracic intradural extramedullary mass c/w meningioma who presents with increased weakness involving the right lower extremity. With ambulation, her right leg gives out frequently. She had urinary dysfunction prior to the surgery which improved/resolved. This is still the case now. She reports intermittent numbness/tingling in the right foot as well. Current Medications Current Medications Current Medications Bacitracin/Sodium Chloride (Iv Sodium Chloride 0.9% 1000ml Bag) 1,000 ml @ 1, 000 mls/hr 1X PERIOP ONCE IRR ; Start 07/08/16 at 07:30; Stop 07/08/16 at 08:29 ; Status DC Gelatin (Gelfoam Size 100) 1 each STK-MED ONCE .ROUTE ; Start 07/08/16 at 07:40 ; Stop 07/08/16 at 07:41; Status DC Bupivacaine HCl (Sensorcaine Mpf 0.25%) 30 ml STK-MED ONCE .ROUTE ; Start at 07:40; Stop 07/08/16 at 07:41; Status DC Thrombin 20,000 unit STK-MED ONCE TP ; Start 07/08/16 at 07:40; Stop 07/08/16 at 07:41; Status DC Bupivacaine HCl (Sensorcaine Mpf 0.5%) 30 ml STK-MED ONCE .ROUTE ; Start at 07:41; Stop 07/08/16 at 07:42; Status DC Lidocaine HCl 30 ml STK-MED ONCE .ROUTE ; Start 07/08/16 at 07:42; Stop at 07:43; Status DC Lidocaine/ Epinephrine (Xylocaine 1%-Epi 1:100,000) 20 ml STK-MED ONCE .ROUTE ; Start 07/08/16 at 07:43; Stop 07/08/16 at 07:44; Status DC Ondansetron HCl (Zofran) 4 mg PRN Q6HRS PRN IV Nausea; Start 07/08/16 at 07:45 ; Stop 07/08/16 at 18:00 Fentanyl Citrate (Fentanyl 2ml Vial) 25 mcg PRN Q5MIN PRN IV MILD PAIN; Start 07/08/16 at 07:45; Stop 07/08/16 at 18:00 Fentanyl Citrate (Fentanyl 2ml Vial) 50 mcg PRN Q5MIN PRN IV MODERATE PAIN; Start 07/08/16 at 07:45; Stop 07/08/16 at 18:00 Morphine Sulfate 1 mg 1 mg PRN Q10MIN PRN IV SEVERE PAIN; Start 07/08/16 at 07: 45; Stop 07/08/16 at 18:00 Lactated Ringer's (Iv Lactated Ringers) 1,000 ml @ 30 mls/hr Q24H IV Last administered on 07/08/16t 08:18; Start 07/08/16 at 07:44; Stop 07/08/16 at 19:43 Lidocaine HCl 2 ml 1X PRN PRN ID IV START; Start 07/08/16 at 07:45; Stop at 18:00 Hydromorphone HCl (Dilaudid) 0.5 mg PRN Q10MIN PRN IV SEV PAIN,Second choice; Start 07/08/16 at 07:45; Stop 07/08/16 at 18:00 Prochlorperazine Edisylate 5 mg 5 mg PACU PRN PRN IV NAUSEA; Start 07/08/16 at 07:45; Stop 07/08/16 at 18:00 Cefazolin Sodium/ Dextrose (Ancef 2gm Premix) 50 ml @ As Directed STK-MED ONCE IV ; Start 07/08/16 at 08:26; Stop 07/08/16 at 08:27; Status DC Dexamethasone Sodium Phosphate (Decadron) 20 mg STK-MED ONCE .ROUTE ; Start at 08:47; Stop 07/08/16 at 08:48; Status DC Ondansetron HCl 4 mg 4 mg STK-MED ONCE .ROUTE ; Start 07/08/16 at 08:47; Stop at 08:48; Status DC Propofol 50 ml @ As Directed STK-MED ONCE IV ; Start 07/08/16 at 08:47; Stop at 08:48; Status DC Propofol (Diprivan) 20 ml @ As Directed STK-MED ONCE IV ; Start 07/08/16 at 08: 47; Stop 07/08/16 at 08:48; Status DC Lidocaine HCl 100 mg STK-MED ONCE .ROUTE ; Start 07/08/16 at 08:47; Stop at 08:48; Status DC Phenylephrine HCl (Ozzie-Synephrine Inj) 10 mg STK-MED ONCE .ROUTE ; Start at 08:47; Stop 07/08/16 at 08:48; Status DC Remifentanil HCl (Ultiva) 2 mg STK-MED ONCE IV ; Start 07/08/16 at 08:48; Stop 07/08/16 at 08:49; Status DC Rocuronium [place] (Zemuron) 50 mg STK-MED ONCE .ROUTE ; Start 07/08/16 at 08:48 ; Stop 07/08/16 at 08:49; Status DC Active Scripts Active Reported Colace (Docusate Sodium) 100 Mg Capsule 1 Cap PO BID Senna Plus Tablet (Sennosides/Docusate Sodium) 1 Each Tablet 1 Each PO PRN DAILY PRN Magnesium Citrate 296 Ml Solution 296 Ml PO PRN DAILY PRN Dulcolax (Bisacodyl) 5 Mg Tablet.dr 5 Mg PO PRN DAILY PRN Miralax (Polyethylene Glycol 3350) 119 Gm Powder 17 Gm PO DAILY Zofran Odt (Ondansetron) 4 Mg Tab.rapdis 1 Tab SL Q8HRS Tami-Lanta Liquid (Mag Hydrox/Al Hydrox/Simeth) 355 Ml Oral.susp 30 Ml PO PRN Q3HRS PRN Benadryl (Diphenhydramine Hcl) 25 Mg Capsule 25 Mg PO Pantoprazole Sodium 40 Mg Tablet.dr 40 Mg PO DAILY Tylenol (Acetaminophen) 325 Mg Tablet 1-2 Tab PO QID Lisinopril 10 Mg Tablet 1 Tab PO DAILY Multi-Day Vitamins (Multivitamin) 1 Each Tablet 1 Tab PO DAILY Aspir-Low (Aspirin) 81 Mg Tablet.dr 1 Tab PO DAILY Calcium 500 + Vit D 200 Tablet (Calcium Carbonate/Vitamin D3) 1 Each Tablet 1 Each PO Omeprazole 20 Mg Tablet.dr 1 Tab PO DAILY Gabapentin 100 Mg Capsule 400 Mg PO BID Tramadol Hcl 50 Mg Tablet 1 Tab PO PRN Q6HRS Allergies Allergies: Coded Allergies: No Known Drug Allergies (Unverified , 07/08/16) ROS General: No: Chills, Fatigue, Night Sweats Eyes: No Blurry vision, No Double vision, No Loss of vision HEENT: No: Heacaches, Vertigo, Visual Changes Respiratory: No: Cough, Pleuritic Pain, Shortness of breath Cardiovascular: No Chest Pain, No Edema, No Palpitations Genitourinary: YES Hematuria, YES Retention, No Incontinence Neurological: Yes Gait Disturbance, Yes Numbness/Tingling, Yes Weakness, No Bowel/Bladder ControlChng, No Headaches Physical Exam General: Oriented X3, Cooperative HEENT: Atraumatic, EOMI Lungs: Other (respirations even and nonlabored) Cardiovascular: Other (pulse regular) Abdomen: Soft Extremities: No clubbing, No cyanosis, No edema, No tenderness/swelling Skin: No significant lesion Neuro: Normal speech, Strength at 5/5 X4 ext (except 4/5 right HF and KE), Sensation intact (to light touch ), Cranial nerves 3-12 NL Psych/Mental Status: Mental status NL Vitals Vitals Vital Signs Date Time Temp Pulse Resp B/P Pulse Ox O2 Delivery O2 Flow Rate FiO2 07/08/16 08:09 99.4 69 14 180/75 96 Room Air 99.4 Labs Labs Laboratory Tests Test 07/08/16 08:20 White Blood Count 9.7x10^3/uL (4.0-11.0) Red Blood Count 4.48x10^6/uL (3.50-5.40) Hemoglobin 13.5g/dL (12.0-15.5) Hematocrit 41.8% (36.0-47.0) Mean Corpuscular Volume 93fL (79-100) Mean Corpuscular Hemoglobin 30pg (25-35) Mean Corpuscular Hemoglobin Concent 32g/dL (31-37) Red Cell Distribution Width 14.5% (11.5-14.5) Platelet Count 375x10^3/uL (140-400) Neutrophils (%) (Auto) 82% (31-73) Lymphocytes (%) (Auto) 11% (24-48) Monocytes (%) (Auto) 5% (0-9) Eosinophils (%) (Auto) 1% (0-3) Basophils (%) (Auto) 1% (0-3) Neutrophils # (Auto) 8.0x10^3uL (1.8-7.7) Lymphocytes # (Auto) 1.1x10^3/uL (1.0-4.8) Monocytes # (Auto) 0.5x10^3/uL (0.0-1.1) Eosinophils # (Auto) 0.1x10^3/uL (0.0-0.7) Basophils # (Auto) 0.1x10^3/uL (0.0-0.2) Prothrombin Time 13.0SEC (11.7-14.0) Prothromb Time International Ratio 1.0 (0.8-1.1) Activated Partial Thromboplast Time 29SEC (24-38) Laboratory Tests Test 07/08/16 08:20 White Blood Count 9.7x10^3/uL (4.0-11.0) Red Blood Count 4.48x10^6/uL (3.50-5.40) Hemoglobin 13.5g/dL (12.0-15.5) Hematocrit 41.8% (36.0-47.0) Mean Corpuscular Volume 93fL (79-100) Mean Corpuscular Hemoglobin 30pg (25-35) Mean Corpuscular Hemoglobin Concent 32g/dL (31-37) Red Cell Distribution Width 14.5% (11.5-14.5) Platelet Count 375x10^3/uL (140-400) Neutrophils (%) (Auto) 82% (31-73) Lymphocytes (%) (Auto) 11% (24-48) Monocytes (%) (Auto) 5% (0-9) Eosinophils (%) (Auto) 1% (0-3) Basophils (%) (Auto) 1% (0-3) Neutrophils # (Auto) 8.0x10^3uL (1.8-7.7) Lymphocytes # (Auto) 1.1x10^3/uL (1.0-4.8) Monocytes # (Auto) 0.5x10^3/uL (0.0-1.1) Eosinophils # (Auto) 0.1x10^3/uL (0.0-0.7) Basophils # (Auto) 0.1x10^3/uL (0.0-0.2) Prothrombin Time 13.0SEC (11.7-14.0) Prothromb Time International Ratio 1.0 (0.8-1.1) Activated Partial Thromboplast Time 29SEC (24-38) Images Images MRI lumbar spine shows fluid collection at the prior thoracic operative site with CSF intensity in the posterior epidural location producing significant mass effect on the spinal cord VTE Prophylaxis Ordered VTE Prophylaxis Devices: Yes VTE Pharmacological Prophylaxi: Contraindicated (thoracic surgery) Assessment/Plan Assessment/Plan 86F 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 -surgical exploration of operative site with decompression/drainage of fluid collection with thecal sac repair was discussed with explanation of potential risks, benefits, and expectations - after careful consideration of these things , she elects to proceed. -all questions answered, all in agreement CARIN BONE MD Jul 08, 2016 09:14
[2016-07-08] MEDS ORDERED: GLYCOPYRROLATE 1 MG/5 ML VIAL. ONE (09:28)
[2016-07-08] MEDS ORDERED: DESFLURANE > 120 MINUTES IH ONE (10:24)
[2016-07-08] MEDS ORDERED: MINERAL OIL/PETROLATUM,WHITE OPHTH OINT 3.5GM TUBE. ONE (10:24)
[2016-07-08] MEDS ORDERED: 0.9 % SODIUM CHLORIDE 50 ML VIAL. IJ ONE (10:25)
[2016-07-08] MEDS ORDERED: NEOSTIGMINE METHYLSULFATE 5 MG/5 ML SYRINGE. ONE (10:42)
[2016-07-08] MEDS ORDERED: OXYCODONE/APAP 5/325 TABLET. PO PRN (11:15)
[2016-07-08] MEDS ORDERED: NALOXONE 0.4 MG/ML VIAL. IV PRN (11:15)
[2016-07-08] MEDS ORDERED: ZOLPIDEM 5 MG TABLET. PO PRN (11:15)
[2016-07-08] MEDS ORDERED: MAG HYDROX/ALUMINUM HYD/SIMETH 30 ML ORAL.SUSP PO PRN (11:15)
[2016-07-08] MEDS ORDERED: CALCIUM CARBONATE 500 MG TAB.CHEW PO PRN (11:15)
[2016-07-08] MEDS ORDERED: DIPHENHYDRAMINE HCL 25 MG CAPSULE PO PRN (11:15)
[2016-07-08] MEDS ORDERED: DIPHENHYDRAMINE 50 MG/ML VIAL IV PRN (11:15)
[2016-07-08] MEDS ORDERED: ACETAMINOPHEN 325 MG TABLET. PO PRN (11:15)
[2016-07-08] MEDS ORDERED: 0.9 % SODIUM CHLORIDE 10 ML DISP.SYRIN. IV PRN (11:15)
--- NOTE | 2016-07-08 11:18 | PDOC ---
BRIEF OPERATIVE NOTE Date: Jul 08, 2016 Pre-Op Diagnosis cerebrospinal fluid leak, spinal cord compression Post-Op Diagnosis same Procedure Performed exploration of thoracic wound, drainage of fluid collection, repair of cerebrospinal fluid leak Surgeon Amena Typing Bookkeeper none Anesthesia Type: General Blood Loss 25mL Findings small amount of epidural cerebrospinal fluid, onlay duraplasty material Complications none apparent Additional Remarks neuromonitoring potentials markedly improved upon completion of decompression and at conclusion of procedure CARIN BONE MD Jul 08, 2016 11:18
[2016-07-08] MEDS: METHOCARBAMOL 750 MG TABLET PO SCH ×2 (15:28→21:30)
[2016-07-08] MEDS: FERROUS SULFATE 325 MG TABLET PO SCH (17:40)
[2016-07-08] MEDS: CALCIUM CARB/VIT D3 500/200 TABLET PO SCH (17:40)
[2016-07-08] MEDS: DOCUSATE SODIUM 100 MG CAPSULE PO SCH (21:30)
[2016-07-08] MEDS: SENNOSIDES/DOCUSATE 8.6/50MG TABLET. PO SCH (21:30)
[2016-07-09 03:00] VITALS: BP 121/74
[2016-07-09 07:00] VITALS: BP 121/57
[2016-07-09] MEDS: FERROUS SULFATE 325 MG TABLET PO SCH ×3 (08:00→17:00)
[2016-07-09] MEDS: SENNOSIDES/DOCUSATE 8.6/50MG TABLET. PO SCH ×2 (08:17→20:50)
[2016-07-09] MEDS: CALCIUM CARB/VIT D3 500/200 TABLET PO SCH ×2 (08:17→17:29)
[2016-07-09] MEDS: MULTIVITAMIN with MINERAL TABLET. PO SCH (08:17)
[2016-07-09] MEDS: METHOCARBAMOL 750 MG TABLET PO SCH ×3 (08:17→20:51)
[2016-07-09] MEDS: OXYCODONE/APAP 5/325 TABLET. PO PRN ×3 (08:17→20:51)
[2016-07-09] MEDS: DOCUSATE SODIUM 100 MG CAPSULE PO SCH ×2 (08:18→20:50)
--- NOTE | 2016-07-09 10:58 | PDOC ---
SUBJECTIVE Subjective Denies acute complaints. Denies paresthesias or any significant pain. Elevating HOB this AM without problems. OBJECTIVE Vital Signs Vital Signs Date Time Temp Pulse Resp B/P Pulse Ox O2 Delivery O2 Flow Rate FiO2 07/09/16 08:17 96 Nasal Cannula 3.0 07/09/16 07:00 98.5 78 16 121/57 94 Nasal Cannula 3.0 98.5 07/09/16 03:00 98.2 88 20 121/74 96 Nasal Cannula 3.0 98.2 07/08/16 23:00 99.9 86 20 136/88 95 Nasal Cannula 3.0 99.9 07/08/16 19:50 Nasal Cannula 3.0 07/08/16 19:00 98.3 85 20 117/64 96 Nasal Cannula 3.0 98.3 07/08/16 17:15 80 142/66 95 Nasal Cannula 3.0 07/08/16 16:15 91 143/97 97 Nasal Cannula 3.0 07/08/16 15:15 84 148/77 98 Nasal Cannula 3.0 07/08/16 14:45 84 144/77 98 Nasal Cannula 3.0 07/08/16 14:15 84 136/66 99 Nasal Cannula 3.0 07/08/16 14:00 83 142/75 99 Nasal Cannula 3.0 07/08/16 13:45 83 141/77 98 Nasal Cannula 3.0 07/08/16 13:30 82 147/81 99 Nasal Cannula 3.0 07/08/16 13:15 Nasal Cannula 3.0 07/08/16 13:15 97.7 81 16 148/53 99 Nasal Cannula 3.0 97.7 07/08/16 13:15 97.7 81 16 148/83 99 Nasal Cannula 3.0 97.7 07/08/16 12:54 68 16 131/68 97 Nasal Cannula 2 07/08/16 12:40 62 16 140/62 90 Nasal Cannula 2 07/08/16 12:25 80 16 143/66 93 Room Air 07/08/16 12:10 77 18 135/79 97 Room Air 07/08/16 11:55 70 18 148/66 97 Room Air 07/08/16 11:40 72 14 148/78 100 Simple Mask 8 07/08/16 11:21 97.0 81 14 147/77 99 Simple Mask 8 97.0 07/08/16 11:21 Mask 8 I & O Intake and Output 07/09/16 07:00 Intake Total 1210 ml Output Total 1375 ml Balance -165 ml Intake Oral 360 ml IV Total 850 ml Output Urine Total 1350 ml Estimated Blood Loss 25 ml PHYSICAL EXAM Physical Exam AAOx4, STEINER, persistent right hip weakness, full strength distally, sensation intact LT, dressing c/d/i flat ASSESSMENT/PLAN Assessment/Plan POD 1 drainage of CSF collection for mass effect on thoracic cord with repair of CSF leak -will continue gradual elevation this AM, once upright without problem, may begin to mobilize and work with therapy -d/c gertrudis once mobilizing -monitor for changes Problems: CARIN BONE MD Jul 09, 2016 10:58
[2016-07-09 11:00] VITALS: BP 112/57
[2016-07-09 15:00] VITALS: BP 96/48
[2016-07-09 19:00] VITALS: BP 125/62
[2016-07-09 23:00] VITALS: BP 142/62
[2016-07-10 03:00] VITALS: BP 148/75
[2016-07-10 07:00] VITALS: BP 161/73
[2016-07-10] MEDS: FERROUS SULFATE 325 MG TABLET PO SCH ×2 (08:00→13:35)
[2016-07-10] MEDS: METHOCARBAMOL 750 MG TABLET PO SCH ×3 (09:07→20:37)
[2016-07-10] MEDS: SENNOSIDES/DOCUSATE 8.6/50MG TABLET. PO SCH ×2 (09:07→20:37)
[2016-07-10] MEDS: DOCUSATE SODIUM 100 MG CAPSULE PO SCH ×2 (09:07→20:37)
[2016-07-10] MEDS: CALCIUM CARB/VIT D3 500/200 TABLET PO SCH ×2 (09:07→14:17)
[2016-07-10] MEDS: OXYCODONE/APAP 5/325 TABLET. PO PRN ×3 (09:07→20:48)
[2016-07-10] MEDS: MULTIVITAMIN with MINERAL TABLET. PO SCH (09:07)
[2016-07-10 11:00] VITALS: BP 129/76
--- NOTE | 2016-07-10 11:52 | PDOC ---
SUBJECTIVE Subjective Has been working with physical therapy. Strength improved. Denies any pain or paresthesias. Continued difficulty with ambulation. Nursing reports significant anxiety may play a role in this. OBJECTIVE Vital Signs Vital Signs Date Time Temp Pulse Resp B/P Pulse Ox O2 Delivery O2 Flow Rate FiO2 07/10/16 11:00 97.8 78 18 129/76 94 Room Air 97.8 07/10/16 10:09 94 Room Air 3.0 07/10/16 09:07 94 Room Air 07/10/16 08:00 Room Air 3.0 07/10/16 07:00 98.2 73 20 161/73 94 Room Air 98.2 07/10/16 03:00 98.3 71 18 148/75 94 Room Air 98.3 07/10/16 00:36 Room Air 07/09/16 23:00 98.2 79 18 142/62 92 Room Air 98.2 07/09/16 21:51 16 07/09/16 20:51 16 91 Room Air 07/09/16 20:00 Room Air 07/09/16 19:00 98.1 74 18 125/62 91 Room Air 98.1 07/09/16 15:00 97.9 72 16 96/48 95 Nasal Cannula 3.0 97.9 07/09/16 14:49 95 Nasal Cannula 3.0 07/09/16 14:19 94 Nasal Cannula 3.0 07/09/16 13:15 94 Nasal Cannula 3.0 I & O Intake and Output 07/10/16 07:00 Intake Total 720 ml Output Total 300 ml Balance 420 ml Intake Oral 720 ml Output Urine Total 300 ml PHYSICAL EXAM Physical Exam AAOx4, NAD, STEINER, limited ROM right hip flexion, produces 5/5 strength throughout otherwise, sensation intact to LT, some inconsistency with proprioception exam in BLE, incision c/d/i, flat, nontender ASSESSMENT/PLAN Assessment/Plan s/p CSF leak repair, removal of fluid collection -continue therapies and mobilize as able -CM for d/c planning Problems: CARIN BONE MD Jul 10, 2016 11:52
[2016-07-10] MEDS ORDERED: ALPRAZOLAM 0.5 MG TABLET PO PRN (12:00)
[2016-07-10] MEDS: ALPRAZOLAM 0.25 MG TABLET PO PRN (12:07)
[2016-07-10 15:00] VITALS: BP 134/80
[2016-07-10 19:00] VITALS: BP 151/71
[2016-07-10 23:00] VITALS: BP 144/71
[2016-07-11] VITALS (7 sets, daily range): BP systolic 123–177; BP diastolic 77–91
[2016-07-11] MEDS: FERROUS SULFATE 325 MG TABLET PO SCH ×2 (08:00→17:00)
[2016-07-11] MEDS: MULTIVITAMIN with MINERAL TABLET. PO SCH (09:04)
[2016-07-11] MEDS: METHOCARBAMOL 750 MG TABLET PO SCH ×3 (09:04→21:20)
[2016-07-11] MEDS: SENNOSIDES/DOCUSATE 8.6/50MG TABLET. PO SCH ×2 (09:04→21:20)
[2016-07-11] MEDS: CALCIUM CARB/VIT D3 500/200 TABLET PO SCH ×2 (09:04→17:50)
[2016-07-11] MEDS: DOCUSATE SODIUM 100 MG CAPSULE PO SCH ×2 (09:04→21:20)
[2016-07-11] MEDS: OXYCODONE/APAP 5/325 TABLET. PO PRN ×2 (09:13→22:30)
[2016-07-11] MEDS: ALPRAZOLAM 0.25 MG TABLET PO PRN (09:13)
--- NOTE | 2016-07-11 10:51 | PDOC ---
SUBJECTIVE Subjective Denies acute changes. Reports continued functional difficulty with right leg upon ambulation. Denies paresthesias. Mccollum out, voids. Reports feels a little better each day. OBJECTIVE Vital Signs Vital Signs Date Time Temp Pulse Resp B/P Pulse Ox O2 Delivery O2 Flow Rate FiO2 07/11/16 09:13 Room Air 07/11/16 07:00 97.9 72 18 177/91 96 Room Air 97.9 07/11/16 03:48 64 123/78 07/11/16 03:00 98.1 76 18 170/87 90 Room Air 98.1 07/10/16 23:00 98.6 73 18 144/71 93 Room Air 98.6 07/10/16 21:48 16 93 Room Air 07/10/16 20:48 16 93 Room Air 07/10/16 20:07 Room Air 07/10/16 19:00 98.4 81 18 151/71 93 Room Air 98.4 07/10/16 17:44 95 Room Air 07/10/16 15:00 97.9 76 18 134/80 95 Room Air 97.9 07/10/16 11:00 97.8 78 18 129/76 94 Room Air 97.8 I & O Intake and Output 07/11/16 07:00 Intake Total 770 ml Output Total 2450 ml Balance -1680 ml Intake Oral 770 ml Output Urine Total 2450 ml # Voids 2 PHYSICAL EXAM Physical Exam AAOx4, NAD, c/d/i, STEINER 5/5 except limited ROM right HF, sensation intact LT ASSESSMENT/PLAN Assessment/Plan s/p CSF leak repair -continue to increase activities with therapy -d/c to appropriate venue when arrangements are made Problems: CARIN BONE MD Jul 11, 2016 10:51
--- NOTE | 2016-07-11 19:16 | OP ---
DATE OF SURGERY: 07/08/2016 PREOPERATIVE DIAGNOSES: Spinal cord compression and cerebrospinal fluid leak in thoracic region. POSTOPERATIVE DIAGNOSES: Spinal cord compression and cerebrospinal fluid leak in thoracic region. PROCEDURES: 1. Expiration of thoracic wound. 2. Evacuation of fluid collections with decompression of spinal cord and repair of cerebrospinal fluid leak. SURGEON: Geoffrey Bone M.D. CASINO FLOOR PERSON: None. ANESTHESIA: General. COMPLICATIONS: None intraprocedurally. 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 Primary surgeon for this procedure was Dr. Proctor. More recently, she has been in rehab and has been developing increased difficulty with gait, particularly with respect to right lower extremity. Repeat imaging was obtained showing a fluid collection with compression of the spinal cord at the operative site. Fluid intensity consistent with cerebrospinal fluid, the patient presents for evacuation of this ____ CSF. Please refer to the patient's chart for additional details. DESCRIPTION OF PROCEDURE: After informed consent was obtained, the patient was brought into the operating room, was placed under general anesthesia, was placed in the prone position on the Johnny table. All pressure points were checked and padded appropriately. Neuromonitoring was instituted and baseline potentials were obtained. The patient's previous incision after the region was prepped and draped in the usual sterile fashion was created with 10 blade scalpel. Monopolar electrocautery was utilized to dissect the avascular midline into the palpated spinous processes just cephalad and caudal to the prior laminectomy site. The muscles and soft tissues were reopened dissectioning the prior sutures and some clearance fluid was identified, this was suctioned. The patient had a previous onlay duraplasty which was subsequently removed as well. Upon removal of fluid and duraplasty products, and scar tissue, the thecal sac was noted to be decompressed with direct visualization. Of note, neuro monitoring potentials markedly improved immediately after decompression. Valsalva maneuvers were performed to help determine the site of any potential cerebrospinal fluid leak as the primary repair with a running nylon stitch appeared to be intact. A possible small degree of clear cerebrospinal fluid was noted to emerge from the superior aspect of the primary repair with Valsalva maneuver. At this location, a single 5-0 Prolene stitch was instituted. On completion of the rest of the Valsalva maneuver, did not produce any readily visible cerebrospinal fluid leak in the location. A thin layer of DuraSeal was applied followed by adhesive Duragen as an onlay duraplasty. Wound was generously irrigated with antibiotic irrigation prior to the final closure. The muscles and fascia were then reapproximated with 0 Vicryl in simple interrupted fashion. Prior to closure, Valsalva maneuver was again performed and no cerebrospinal fluid was identified at any location. Subcutaneous tissues were reapproximated with 2-0 Vicryl in an interrupted inverted fashion and the skin was reapproximated with jassi. The wound was dressed with Xeroform, Telfa and Tegaderm. At the end the procedure, all needle and sponge counts correct x 2. The patient was extubated in the operating room and taken to recovery in stable condition. There were no intraprocedural complications apparent. Neuro monitoring potentials including motor potentials were noted to be consistently improved throughout the duration of the procedure after decompression. GEOFFREY BONE MD DR: ADITI/ganga JOB#: [id number] / [id number]
[2016-07-12 03:04] VITALS: BP 160/80
[2016-07-12 07:00] VITALS: BP 180/85
[2016-07-12] MEDS: FERROUS SULFATE 325 MG TABLET PO SCH (08:00)
[2016-07-12] MEDS: CALCIUM CARB/VIT D3 500/200 TABLET PO SCH (09:33)
[2016-07-12] MEDS: METHOCARBAMOL 750 MG TABLET PO SCH ×2 (09:33→14:23)
[2016-07-12] MEDS: DOCUSATE SODIUM 100 MG CAPSULE PO SCH (09:33)
[2016-07-12] MEDS: MULTIVITAMIN with MINERAL TABLET. PO SCH (09:33)
[2016-07-12] MEDS: SENNOSIDES/DOCUSATE 8.6/50MG TABLET. PO SCH (09:33)
--- NOTE | 2016-07-12 10:06 | DISCH ---
DISCHARGE INSTRUCTIONS Condition on Discharge Condition on Discharge: Stable Activity After Discharge Activity Instructions for Disc: Activity as tolerated, Avoid exertion Bathing Instructions: Shower-keep dressing dry Lifting Instructions after Dis: No heavy lifting, No pulling or pushing, Do not lift >10 pounds Driving Instructions after Dis: Do not drive Diet after Discharge Additional Diet Restrictions: continue current diet Wound Incision Care Wound/Incision Care: Ice to area for comfort Other wound/incision instructi: dressing changes as needed, may leave open to air Wound Care Equipment: Sutures/jassi Contacting the [facility] after DC Call your doctor for: Concerns you may have Follow-Up Follow up with: Dr. Proctor in 2 weeks [phone] CORIN KELLER APRN Jul 12, 2016 10:06
[2016-07-12 11:00] VITALS: BP 147/86
--- NOTE | 2016-07-12 12:57 | PDOC ---
SUBJECTIVE Subjective Late entry. Pt seen and examined approx 0900 07/12/16. Denies pain. Denies acute complaints. Feels right hip better. OBJECTIVE Vital Signs Vital Signs Date Time Temp Pulse Resp B/P Pulse Ox O2 Delivery O2 Flow Rate FiO2 07/12/16 11:00 97.9 90 18 147/86 94 Room Air 97.9 07/12/16 09:56 Room Air 07/12/16 07:35 Room Air 07/12/16 07:00 98.1 81 18 180/85 94 Room Air 98.1 07/12/16 03:04 98.3 85 18 160/80 93 Room Air 98.3 07/11/16 23:30 20 93 Room Air 07/11/16 23:08 98.2 82 18 175/77 93 Room Air 98.2 07/11/16 22:30 20 94 Room Air 07/11/16 20:00 Room Air 3.0 07/11/16 19:36 98.3 96 18 148/87 92 Room Air 98.3 07/11/16 15:00 97.9 79 18 139/82 94 Room Air 97.9 I & O Intake and Output 07/12/16 07:00 Intake Total 280 ml Balance 280 ml Intake Oral 280 ml # Voids 8 PHYSICAL EXAM Physical Exam AAOx4, STEINER 5/5 resistance, ROM right hip slightly improved, sensation intact LT , c/d/i ASSESSMENT/PLAN Assessment/Plan s/p CSF leak repair -d/c to appropriate venue when arrangements made -continue to work with therapies Problems: CARIN BONE MD Jul 12, 2016 12:57
[2016-07-12 15:00] VITALS: BP 178/91
== END 2016-07-12 18:15 | disposition short-term general hospital (02) | DRG 29 ==
LOC: OPSVCIP 07:30 → 4 NORTH 13:16
PROVIDERS: ADMIT Neurological Surgery; ATTEND Neurological Surgery
PROC: 00QT0ZZ Repair Spinal Meninges, Open Approach (ICD-10-PCS; principal; 2016-07-11)
DX: G96.0 Cerebrospinal fluid leak (principal); G95.20 Unspecified cord compression; F41.9 Anxiety disorder, unspecified; Z86.011 Personal history of benign neoplasm of the brain
CPT/HCPCS: 36415; 85027; 85610; 85730; 87641; J0690; J1100; J2405; J2704; J2710; J3010; J3490; J7030; J7120; 97110; 97116; 97530; 97535

== ENCOUNTER → 2016-11-23 | Outpatient (CLI) | payer MEDICARE ==
[~2016-11-23] MED LIST changes: +ACET325T9 PO; -BACITRACIN 50,000 UNIT in IV NORMAL SALINE 1000ML BAG 1,000 ML IRR ONE; +BISA-42 PO; +CALC-157 PO; -CALC-47 PO; +DIPH25CA58 PO; +DOCU-109 PO; +GADOBUTROL 7.5 MMOL/7.5 ML VIAL IV ONE; -HYDR-2672 PO; +HYDR-2766 PO; +MAG-27 PO; +MAGN296S9 PO; -OMEG1CAP16 PO; +OMEG1CAP27 PO; -OMEP20TA PO; +OMEP20TA8 PO; +ONDA4TAB10 SL; +PANT40TA5 PO; +POLY119P4 PO; +POLY17PO29 PO; -POLY17PO5 PO; +SENN1TAB21 PO
--- NOTE | 2016-11-23 12:34 | KCIC ---
INDICATION: T8-T9 mass with resection. CSF leak. TECHNIQUE: Sagittal T1, sagittal T2, sagittal STIR, sagittal postcontrast, axial T1, axial T2, and axial postcontrast sequences are provided. 7 mL of intravenous Gadavist was administered without complication. Comparison is from April 21, 2016. There is also a comparison from July 06, 2016. There is motion degradation on the axial series. FINDINGS: Laminectomy defect at T8-T9 again is noted. Fluid collection at the defect is decreased in size, 16 mm transverse x 6 mm AP x 28 mm craniocaudal compared to 21 x 16 x 35 mm on prior. The degree of compression of the spinal cord is decreased. Midline AP diameter of the thecal sac is now 8 mm compared to 3 to 4 mm on prior. There is minimal stable cord hyperintensity at the level of surgery, could represent a small amount of myelomalacia. There is no enhancing lesion at this level. Degenerative findings are similar to prior study. There is no worrisome marrow lesion. 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 Probable cysts in the kidneys are noted. One lesion in the interpolar left kidney is not a simple cyst, 15 mm in size. Renal lesions appear similar to prior. IMPRESSION: 1. Decrease in size of the postoperative fluid collection at the laminectomy defect at T8-T9. This could represent resolving seroma or hematoma. CSF leak also is a consideration. There is decreased mass effect on the cord, there is minimal stable cord hyperintensity. Electronically signed by: Rajiv Machuca MD (11/23/2016 12:31 PM) [id number]
== END | disposition home or self-care (01) ==
LOC: KCIC MRI 10:42
PROVIDERS: ATTEND Neurological Surgery
DX: G96.0 Cerebrospinal fluid leak (principal)
CPT/HCPCS: 72157; 82565; A9585

== ENCOUNTER → 2020-11-17 | Outpatient (CLI) | payer MEDICARE ==
[~2020-11-17] MED LIST changes: -GADOBUTROL 7.5 MMOL/7.5 ML VIAL IV ONE; -HYDR-2766 PO; +HYDR-2769 PO; +LISI10TA16 PO; -LISI10TA2 PO; +MAGN296S68 PO; -MAGN296S9 PO; -PANT40TA5 PO; +PANT40TA77 PO; -SENN1TAB21 PO; +SENN1TAB62 PO
--- NOTE | 2020-11-17 15:35 | KCIC ---
EXAMINATION: Magnetic resonance imaging (MRI) of the brain and brainstem without contrast 11/17/2020 1 :45 PM HISTORY: Memory loss, progressing TECHNIQUE: Multiplanar multi-weighted MRI of the brain and brainstem was performed without intravenou s contrast using the general brain protocol. COMPARISON: None available. FINDINGS: Evaluation degraded by motion. The scalp and calvarium are normal. The superior sagittal sinus demonstrates normal venous flow. The corpus callosum is normal in shape and signal intensity. The posterior fossa is unremarkable. The p ituitary and sella are normal. The brainstem and craniocervical junction are unremarkable. There are T2/FLAIR signal hyperintense foci in the periventricular and subcortical white matter with areas of confluence most suggestive of moderate chronic small vessel ischemic changes. Diffusion weighted images reveal no hyperintensities to suggest acute cerebral infarction. The suscep tibility weighted sequences reveal no evidence of acute or chronic hemorrhage. The ventricles are nor mal in size and position without evidence of hydrocephalus. The paranasal sinuses are normal. The visualized portions of the mastoids are unremarkable. The orbi ts appear normal. Normal flow voids are demonstrated in the carotid arteries and basilar artery. IMPRESSION: Evaluation is degraded by motion. 1. No evidence for acute or subacute ischemia. 2. There are T2/FLAIR signal hyperintense foci in the periventricular and subcortical white matter wi th areas of confluence most suggestive of moderate chronic small vessel ischemic changes. Electronically signed by: Anita Montoya MD (11/17/2020 3:33 PM) [id number]
== END ==
LOC: KCIC MRI 12:55
PROVIDERS: ATTEND Physician Assistant
DX: R41.3 Other amnesia (principal); R47.01 Aphasia
CPT/HCPCS: 70551